=== PATIENT | male | born 1985 | race African-American/Black ===

== ENCOUNTER 2023-08-09 09:23 | Emergency (ER) | payer MEDICAID, SELFPAY ==
--- NOTE | ~2023-08-09 | XR_ITS ---
EXAMINATION: XR SHOULDER, RIGHT CLINICAL INFORMATION: Pain, no trauma COMPARISON: None available. TECHNIQUE: AP external rotation, Grashey, scapular Y views of the right shoulder. FINDINGS: The bones and soft tissues are normal. No fracture. Glenohumeral and acromioclavicular alignment is anatomic with normal joint space. No abnormal soft tissue calcifications. XR/XR shoulder RT min 2V IMPRESSION: Unremarkable plain radiographs of the right shoulder.
[2023-08-09 09:27] VITALS: BP 174/87; PULSE 90; RESP 19; TEMP 36.6; O2SAT 99; BMI 50.2
--- NOTE | 2023-08-09 12:28 | ECG_ITS ---
Test Reason : r arm pain Blood Pressure : / mmHG Vent. Rate : 063 BPM Atrial Rate : 063 BPM P-R Int : 180 ms QRS Dur : 106 ms QT Int : 386 ms P-R-T Axes : 055 019 042 degrees QTc Int : 395 ms Sinus rhythm with marked sinus arrhythmia Otherwise normal ECG When compared to the previous EKG of No significant changes seen Referred By: Carina Peñaloza Electronically Signed By:VITO COLLINS MD
--- NOTE | 2023-08-09 12:37 | ED_ITS ---
HPI - Extremity Problem General Chief complaint: Extremity Injury, Upper Stated complaint: R Shoulder Pain No Injury Time Seen by Provider: 08/09/23 12:01 Source: patient Mode of arrival: ambulatory Limitations: no limitations History of Present Illness HPI Narrative: This is a 38-year-old male history of obesity, diabetes, DVT on Eliquis, HTN presenting to the emergency department for complaints of atraumatic right shoulder pain for the past 3 days. Patient reports he awoke 3 days ago with atraumatic right shoulder pain after sleeping, pain started in the morning after waking up. He reports pain is worse with certain movements such as pulling and overhead movements. He denies any previous issues with his right shoulder. He reports intermittent tingling however no associated numbness. Denies associated trauma. Denies chest pain, shortness of breath, fevers, chills, nausea, vomiting, abdominal pain, headache, vision changes, dizziness and weakness. Related Data Home Medications Medication Instructions Recorded Confirmed acetaminophen 500 mg tablet 500 mg PO Q6H PRN Pain 02/01/23 02/01/23 amlodipine 10 mg tablet 10 mg PO DAILY 02/01/23 02/01/23 apixaban 2.5 mg tablet (Eliquis) 2.5 mg PO BID 02/01/23 02/01/23 aripiprazole 30 mg tablet 30 mg PO DAILY 02/01/23 02/01/23 chlorthalidone 25 mg tablet 12.5 mg PO DAILY 02/01/23 02/01/23 clonidine HCl 0.2 mg tablet 0.2 mg PO BEDTIME 02/01/23 02/01/23 gabapentin 400 mg capsule 400 mg PO DAILY 02/01/23 02/01/23 metformin 500 mg tablet 500 mg PO BID 02/01/23 02/01/23 nicotine 21 mg/24 hr daily 1 patch transdermal DAILY 02/01/23 02/01/23 transdermal patch olmesartan 20 mg tablet 10 mg PO DAILY 02/01/23 02/01/23 rosuvastatin 10 mg tablet 10 mg PO DAILY 02/01/23 02/01/23 trazodone 100 mg tablet 100 mg PO BEDTIME PRN Anxiety 02/01/23 02/01/23 venlafaxine 150 mg 300 mg PO DAILY 02/01/23 02/01/23 capsule,extended release 24 hr Previous Rx's Medication Instructions Recorded cyclobenzaprine 10 mg tablet 10 mg PO BEDTIME PRN muscle spasm 08/09/23 #7 tabs lidocaine 5 % topical patch 1 patch topical DAILY PRN pain #15 08/09/23 ea prednisone 20 mg tablet 20 mg PO DAILY 5 days #5 tabs 08/09/23 Allergies Allergy/AdvReac Type Severity Reaction Status Date / Time amoxicillin [AMOXICILLIN] Allergy Unknown REALLY Verified 08/09/23 09:26 SICK Penicillins [PENICILLINS] Allergy Unknown UNKNOWN Verified 08/09/23 09:26 Review of Systems Review of Systems: Constitutional : No Weight loss, No Fever, No Chills, No Fatigue, No Malaise ENT/Mouth : No sore throat, No Rhinorrhea Eyes: No Eye Pain, No Swelling, No Redness Cardiovascular : No Chest Pain, No SOB, No Dyspnea on Exertion, No Orthopnea, No Edema, No Palpitations Respiratory : No Cough, No Sputum, No Wheezing Gastrointestinal : No Nausea, No Vomiting, No Diarrhea, No Constipation, No abdominal Pain, No Hematochezia, No Melena Genitourinary : No Dysuria, No Urinary Frequency, No Hematuria, Musculoskeletal : + joint pain, No Myalgias, No Joint Swelling Skin : No Skin Lesions, No rash Neuro : No Weakness, No Numbness, No Dizziness, No Headache Psych : No Anxiety/Panic, No Depression All other systems reviewed and are negative Yes all other systems are reviewed and are negative [facility] Past Medical History Attestation statement: The following information was validated with the patient. Source: old records reviewed and nursing notes reviewed Medical History (Updated 08/09/23 @ 12:29 by AMANDA Almonte) GERD (gastroesophageal reflux disease) Uncontrolled type 2 diabetes mellitus with hyperglycemia Smoker Pulmonary embolism, bilateral Obesities, morbid HTN (hypertension) Bipolar 2 disorder Anxiety and depression Family History Family History (System 07/26/23 @ 13:58 by Tri Guzman) Maternal Grandmother Brain cancer Paternal Grandmother Heart disease Heart attack Stroke Social History Social History (System 07/26/23 @ 13:58 by Tri Guzman) Household Members: Significant Other and Family Patient Tobacco Use Status: Current everyday Tobacco user Tobacco use type: Cigarette Cigarettes Per Day: 8 Substance Use Type: Marijuana Advance Directives: No Advance Directives Information Provided: Yes service: No Current occupational status: disabled Physical Exam Vital Signs: Vital Signs: Last Vital Signs Temp 98 F 08/09/23 09:27 Pulse 90 08/09/23 09:27 Resp 19 08/09/23 09:27 BP 174/87 H 08/09/23 09:27 Pulse Ox 99 08/09/23 09:27 O2 Del Method Room Air 08/09/23 09:27 BMI result Body Mass Index 50.2 vss Appearance: Alert.? Oriented X3.? No acute distress.? Head: Normocephalic, atraumatic, no step-offs or deformities Eyes: Pupils equal, round and reactive to light.? Neck: Normal inspection.? Neck supple.? CVS: Normal heart rate and rhythm.? Pulses normal.? Respiratory: No respiratory distress.? Breath sounds normal.? Skin: Skin warm and dry.? Normal skin color.? Normal skin turgor.? Extremities: No lower extremity edema.? No calf ttp. 5/5 strength to bilateral upper and lower extremities full range of motion to bilateral upper extremities however some discomfort with range of motion of right shoulder particularly with overhead movements and with pulling. 2+ radial pulses equal bilateral. No wrist drop. Normal sensation distally to bilateral upper extremities. Capillary refill less than 2 seconds to bilateral upper extremity digits. There is some discomfort with palpation of the right deltoid region in the right trapezius superior aspect. Normal left shoulder and trapezius. Back: No midline tenderness, no C-spine tenderness, full range of motion, no CVA tenderness bilaterally Neuro: Oriented X 3.? No motor deficit.? No sensory deficit. CN 2-12 intact Course Reevaluation(s) Reevaluation #1: X-ray unremarkable. No fractures, dislocations. No signs of osteoarthritis. No soft tissue calcifications. Will give Lidoderm patch at this time. Will discharge with cyclobenzaprine, prednisone, Lidoderm patch. Educated patient on diagnosis and treatment plan, answered all question, patient verbalizes understanding. At this time patient will be discharged home, advised to return with new or worsening symptoms. Educated on worrisome signs and symptoms and when to return. At this time I feel comfortable discharge home. Time: 12:44 Medications Administered Discontinued Medications Generic Name Dose Route Start Last Admin Trade Name Freq PRN Reason Stop Dose Admin Lidocaine 2 patch 08/09/23 12:36 08/09/23 12:59 Lidocaine 4 % Patch Adh..Patch TRANSDERMA 08/09/23 12:37 2 patch ONCE ONE Administration Protocol Medical Decision Making Medical Decision Making MDM Narrative: 38-year-old male presents with atraumatic right shoulder pain x3 days Physical exam significant for No lower extremity edema.? No calf ttp. 5/5 strength to bilateral upper and lower extremities full range of motion to bilateral upper extremities however some discomfort with range of motion of right shoulder particularly with overhead movements and with pulling. 2+ radial pulses equal bilateral. No wrist drop. Normal sensation distally to bilateral upper extremities. Capillary refill less than 2 seconds to bilateral upper extremity digits. There is some discomfort with palpation of the right deltoid region in the right trapezius superior aspect. Normal left shoulder and trapezius. This is likely deltoid spasm or strain or trapezius muscle strain. Other differentials include tendinitis, osteoarthritis. Unlikely atypical presentation of ACS, venous occlusion, arterial occlusion, threat to limb or neurovascular compromise. Unlikely fracture dislocation as this is atraumatic pain. Plan at this time imaging and EKG. Differential Diagnosis Differential Diagnoses: The differential diagnosis associated with the presentation includes This is likely deltoid spasm or strain or trapezius muscle strain. Other differentials include tendinitis, osteoarthritis. Unlikely atypical presentation of ACS, venous occlusion, arterial occlusion, threat to limb or neurovascular compromise. Unlikely fracture dislocation as this is atraumatic pain. Admission/Observation Consideration of admission/observation: Escalation of care including admission/observation considered unlikey Independent Interpretation I performed an independent interpretation of an: EKG (Nonischemic) and Plain X- Ray (XR/XR shoulder RT min 2V IMPRESSION: Unremarkable plain radiographs of the right shoulder.) Radiology Impression Discussion of test interpretation with radiology: I have reviewed the radiologist's reading. (XR/XR shoulder RT min 2V IMPRESSION: Unremarkable plain radiographs of the right shoulder.) Tests considered The following testing was considered but not selected: Considered labs however no chest pain or shortness of breath unlikely ACS or PE. Prescription Management I considered prescription management with: Other (Muscle relaxer, prednisone) Chronic Conditions Patient?s care impacted by: Diabetes and Other (Obesity) Critical Care Time Critical Care Time Critical Care Time: No Discharge Plan Discharge Clinical Impression: Acute pain of right shoulder Patient Disposition: Home, Self-Care Instructions: Arm Pain (ED) Additional Instructions: Take your medications as prescribed. If you were prescribed antibiotics today, it is important that you take your medication to their entirety, do not skip any doses, do not finish them early. Follow-up with your primary care provider this week. Return to the emergency department with new or worsening symptoms. Such as fevers, chills, chest pain, shortness of breath, nausea, vomiting, dizziness, headache, vision changes, lethargy In case of emergency call 911 XR/XR shoulder RT min 2V IMPRESSION: Unremarkable plain radiographs of the right shoulder. Prescriptions: New cyclobenzaprine 10 mg tablet 10 mg PO BEDTIME PRN (Reason: muscle spasm) Qty: 7 0RF lidocaine 5 % adhesive patch,medicated 1 patch topical DAILY PRN (Reason: pain) Qty: 15 0RF Rx Instructions: leave on most painful area for up to 12 hrs prednisone 20 mg tablet 20 mg PO DAILY 5 Days Qty: 5 0RF No Action metformin 500 mg Tablet 500 mg PO BID gabapentin 400 mg Capsule 400 mg PO DAILY venlafaxine 150 mg Capsule,Extended Release 24hr 300 mg PO DAILY chlorthalidone 25 mg Tablet 12.5 mg PO DAILY acetaminophen 500 mg Tablet 500 mg PO Q6H PRN (Reason: Pain) clonidine HCl 0.2 mg Tablet 0.2 mg PO BEDTIME trazodone 100 mg Tablet 100 mg PO BEDTIME PRN (Reason: Anxiety) amlodipine 10 mg Tablet 10 mg PO DAILY nicotine 21 mg/24 hr Patch 24 Hour 1 patch TRANSDERMAL DAILY olmesartan 20 mg Tablet 10 mg PO DAILY aripiprazole 30 mg Tablet 30 mg PO DAILY rosuvastatin 10 mg Tablet 10 mg PO DAILY Eliquis 2.5 mg Tablet 2.5 mg PO BID Referrals: [facility] [Provider Group] - 3 days Grecia Braun FNP [Primary Care Provider] - 2 days Stand Alone Forms: Work/School Release
[2023-08-09] MEDS: Lidocaine 4 % Patch ADH..PATCH 2 PATCH TRANSDERMA (12:59)
--- NOTE | 2023-08-09 13:04 | PC.NURSE ---
pt medicated per order, triage tech to do ekg
[2023-08-09 13:27] VITALS: BP 168/82; PULSE 63; RESP 18; TEMP 36.7; O2SAT 96
--- NOTE | 2023-08-09 13:27 | PC.NURSE ---
patient a&ox3, vss, ekg performed, pt medicated per order, pt to discharge home with prescriptions.
== END 2023-08-09 13:28 | disposition home or self-care (01) ==
PROVIDERS: Emergency Provider Emergency Medicine; PCP Registered Nurse
DX: M25.511 Pain in right shoulder (principal); M79.601 Pain in right arm; I49.8 Other specified cardiac arrhythmias
CPT/HCPCS: 73030; 93005; 99283; 99284

== ENCOUNTER → 2023-08-09 12:28 | Outpatient (BNV) | payer MEDICAID, SELFPAY | PROVIDERS: Emergency Provider Emergency Medicine; PCP Registered Nurse; Visit Provider Internal Medicine Cardiovascular Disease | DX: M79.601 Pain in right arm (principal) | CPT/HCPCS: 93010 ==

== ENCOUNTER 2023-08-15 09:20 | Outpatient (AMB) | payer MEDICAID, SELFPAY ==
--- NOTE | 2023-08-15 09:21 | MHC.OFFVIS ---
Intake Intake Visit Reasons: New Pt - Right shoulder pain Intake Note: Mike is a 38 year old right hand dominant male who presents today as a new patient for a evaluation of his right shoulder pain. NO hx of injury. Patient reports he has been having ongoing pain for 2 weeks now. Currently is still having a lot of pain, his pain is on the shoulder and moves to the back of his shoulder blade. Pain is worse when sitting up straight and laying down at night. Allergies amoxicillin [AMOXICILLIN] Allergy (Unknown, Verified 08/15/23 09:24) REALLY SICK Penicillins [PENICILLINS] Allergy (Unknown, Verified 08/15/23 09:24) UNKNOWN HPI New Pt - Right shoulder pain HPI Details 38-year-old right hand dominant male who presents in the office today, as a new patient, for an evaluation of right shoulder pain beginning around 08/06/2023 status post sleeping. X-rays were obtained. He was given a Lidoderm patch. While in the office today the patient reports no history of injury. He reports having ongoing pain for 2 weeks. He states he is having a lot of pain in the right shoulder that radiates to the back of the shoulder blade. He states his pain is worse when sitting up straight and laying down at night. [facility] Medical History (Updated 08/15/23 @ 10:07 by Inocencia Saunders PA-C) GERD (gastroesophageal reflux disease) Uncontrolled type 2 diabetes mellitus with hyperglycemia Smoker Pulmonary embolism, bilateral Obesities, morbid HTN (hypertension) Bipolar 2 disorder Anxiety and depression Family History (System 07/26/23 @ 13:58 by Tri Guzman) Maternal Grandmother Brain cancer Paternal Grandmother Heart disease Heart attack Stroke Social History Household Members: Significant Other and Family Patient Tobacco Use Status: Current everyday Tobacco user Tobacco use type: Cigarette Cigarettes Per Day: 8 Substance Use Type: Marijuana service: No Current occupational status: disabled Review of Systems Const All systems reviewed & are unremarkable except as noted in HPI and below Physical Exam Const General: cooperative and no acute distress Orientation/consciousness: patient oriented x3 Resp Effort & Inspection: normal respiratory effort and able to speak in complete sentences Cardio Peripheral pulses: Peripheral pulses 2+ throughout Skin General skin exam: no rashes or lesions noted Neuro General: patient oriented x3 Extrem Other: Right shoulder: Normal to inspection. No ecchymosis, erythema, or edema. Forward flexion to end range with pain at the last 20 degrees. Abduction to 90 degrees. External rotation to 45 degrees. Able to reach back pocket. Pain with cross-body reach. 4/5 strength with empty can. Negative drop arm. Tenderness to palpation over the trapezius muscle. NVI. Assessment & Plan Assessment & Plan (1) Myofascial pain: Code(s): M79.18 - Myalgia, other site (2) Right shoulder pain: Code(s): M25.511 - Pain in right shoulder Plan Mr. Weems is a 38-year-old right hand dominant male who presents in the office today, as a new patient, for an evaluation of right shoulder pain beginning around 08/06/2023 status post sleeping. X-rays were obtained. He was given a Lidoderm patch. While in the office today the patient reports no history of injury. He reports having ongoing pain for 2 weeks. He states he is having a lot of pain in the right shoulder that radiates to the back of the shoulder blade. He states his pain is worse when sitting up straight and laying down at night. The patient?s pain appears to be muscular in nature. A referral has been placed for the patient to attend physical therapy and for further evaluation with Physiatry. A refill of his lidocaine patches were sent to the pharmacy. Follow up with Ortho will be PRN, or sooner if needed. X-rays of the right shoulder, obtained on 08/09/2023, revealed: No acute fracture or dislocation. Medications: Refilled lidocaine 5% leave on most painful area for up to 12 hrs 1 patch topical DAILY PRN 15 ea 0RF pain Patient Instructions: Scribed by Sophie Baltazar medical genetics director, for Inocencia Saunders PA-C on 08/15/2023 at 9:28 am, EST. Coding Level of Care Code New Pt Level 4 (32077) Diagnoses Myofascial pain M79.18 Right shoulder pain M25.511
== END 2023-08-15 09:51 | disposition home or self-care (01) ==
PROVIDERS: PCP Registered Nurse; Visit Provider Physician Assistant
DX: M79.18 Myalgia, other site (principal); M25.511 Pain in right shoulder
CPT/HCPCS: 99204

== ENCOUNTER → 2023-08-15 09:20 | Outpatient (BNVA) | payer MEDICAID, SELFPAY | PROVIDERS: PCP Registered Nurse; Visit Provider Physician Assistant | DX: M79.18 Myalgia, other site (principal); M25.511 Pain in right shoulder | CPT/HCPCS: 99212 ==

== ENCOUNTER 2023-08-31 10:00 | Outpatient (REF) | payer MEDICAID, SELFPAY ==
--- NOTE | ~2023-08-31 | XR_ITS ---
EXAMINATION: XR SHOULDER, RIGHT CLINICAL INFORMATION: Acute right shoulder pain COMPARISON: None available. TECHNIQUE: AP external rotation, Grashey, scapular Y, and axillary views of the right shoulder. FINDINGS: The bones and soft tissues are normal. No fracture. Glenohumeral and acromioclavicular alignment is anatomic with normal joint space. No abnormal soft tissue calcifications. XR/XR shoulder RT min 2V IMPRESSION: Unremarkable right shoulder.
== END 2023-08-31 10:01 | disposition home or self-care (01) ==
LOC: HO.HHCX 10:00
PROVIDERS: Visit Provider Emergency Medicine
DX: M25.511 Pain in right shoulder (principal)
CPT/HCPCS: 73030

== ENCOUNTER → 2023-12-21 11:00 | Outpatient (BNV) | payer MEDICAID, SELFPAY | PROVIDERS: PCP Registered Nurse; Referring Provider Registered Nurse; Visit Provider Internal Medicine | DX: Z86.711 Personal history of pulmonary embolism (principal) | CPT/HCPCS: 99204 ==

== ENCOUNTER 2024-01-11 09:33 | Outpatient (RCR) | payer MEDICAID, SELFPAY ==
--- NOTE | 2024-02-27 08:55 | MHC.PT.DC ---
[facility] [place] [facility] [place] [facility] [place] [facility] [address] Bernard Tinoco [address] [phone] F: [phone] F: [phone] F: [phone] F: [phone] Physical Therapy Discharge Report Diagnosis: Acute Pain of R Shoulder Date of Surgery: N/A Date of Evaluation: 01/11/24 Date of Discharge: 02/27/24 Treatments to Date: 1 Cancellations to Date: 1 No Shows to Date: 2 Discharge Status: Visit Non-compliance Discharge Summary: Attended eval only, did not return for further visits. Electronically signed by: Hannah Eaton PT DPT Please sign and return to therapist. Thank you for your referral.
== END 2024-02-27 08:55 | disposition home or self-care (01) ==
LOC: HO.PT 09:33
PROVIDERS: PCP Registered Nurse; Visit Provider Registered Nurse
DX: M25.511 Pain in right shoulder (principal)
CPT/HCPCS: 97110; 97161; 97535

== ENCOUNTER 2024-03-12 10:46 | Outpatient (AMB) | payer MEDICAID, SELFPAY ==
--- NOTE | 2024-03-12 10:49 | MHC.OFFVIS ---
Intake Visit Reasons: Abscess~ Rt lower abd Intake Note: Patient scheduled as urgent appointment for abscess on right lower abdomen. Started to flare 1m ago. Was seen by Dr. Kapadia this morning. He is due to start Doxy. Patient c/o: oozing a couple days. Painful when rubs against clothing. Automobile Racer Required: No Accompanied by: Self / Same As Patient Allergies amoxicillin [AMOXICILLIN] Allergy (Unknown, Verified 03/12/24 10:56) REALLY SICK Penicillins [PENICILLINS] Allergy (Unknown, Verified 03/12/24 10:56) UNKNOWN HPI Comments Details: Patient presents for evaluation of abdominal wall infection. He has history of folliculitis in the past, the most recent involving his upper right abdomen which has been treated with conservative therapy and antibiotics. He presents with a recurrence of this on in the lower abdominal on this episode. He has been given a script for antibiotics by his medical doctor which he has not picked up yet. He presents here for further evaluation. Chart was reviewed and patient evaluated. Patient was no longer taking Eliquis. [facility] Medical History (Updated 12/21/23 @ 12:31 by Lauren Bennett MD) GERD (gastroesophageal reflux disease) Uncontrolled type 2 diabetes mellitus with hyperglycemia Smoker Pulmonary embolism, bilateral Obesities, morbid HTN (hypertension) Bipolar 2 disorder Anxiety and depression Family History Maternal Grandmother Brain cancer Paternal Grandmother Heart disease Heart attack Stroke Social History Household Members: Significant Other and Family Patient Tobacco Use Status: Current everyday Tobacco user Tobacco use type: Cigarette Substance Use Type: Marijuana service: No Current occupational status: disabled Physical Exam GI Other: Very corpulent abdomen. Patient has a huge pannus. There is folliculitis involving the right lower quadrant abdominal wall with surrounding erythema and edema. No evidence of any purulence or drainage expressed from the superficial open wound. Dressing applied. Assessment & Plan Assessment & Plan (1) Folliculitis: Code(s): L73.9 - Follicular disorder, unspecified Category: Surgical Plan Similar to his prior episodes, the current plan is treat this conservatively with local wound care in the form of warm compresses and the patient was been strongly encouraged to get his antibiotics script and take these as well. He will see me in few days' time for follow-up or p.r.n.. All questions answered during this interim should the patient the progression of symptoms, he is instructed to call the office or go to the ER. Coding Level of Care Code New Pt Level 4 (79362) Diagnoses Folliculitis L73.9
== END 2024-03-12 11:02 | disposition home or self-care (01) ==
PROVIDERS: PCP Registered Nurse; Referring Provider Emergency Medicine; Visit Provider Surgery
DX: L73.9 Follicular disorder, unspecified (principal)
CPT/HCPCS: 99204

== ENCOUNTER → 2024-03-12 10:46 | Outpatient (BNVA) | payer MEDICAID, SELFPAY | PROVIDERS: PCP Registered Nurse; Referring Provider Emergency Medicine; Visit Provider Surgery | DX: L73.9 Follicular disorder, unspecified (principal) | CPT/HCPCS: 99202 ==

== ENCOUNTER 2024-10-09 19:37 | Emergency (ER) | payer MEDICAID, SELFPAY ==
--- NOTE | ~2024-10-09 | US_ITS ---
CLINICAL HISTORY: right foot swelling Venous duplex ultrasound right lower extremity Comparison: None Findings: The visualized deep veins are fully compressible with normal Doppler color flow and spectral tracings. No popliteal cyst. IMPRESSION: 1. Negative for right lower extremity deep vein thrombosis. This document has been electronically signed by: Tess Landers MD on 10/09/2024 21:25:59
--- NOTE | ~2024-10-09 | XR_ITS ---
CLINICAL HISTORY: foot, big toe pain 3 view right foot Comparison: None Findings: Bones intact. No dislocations. No significant arthritic change or erosions. No ankle effusion. No radiopaque foreign body. IMPRESSION: 1. No acute findings. This document has been electronically signed by: Tess Landers MD on 10/09/2024 21:42:24
[2024-10-09 20:34] VITALS: BP 151/88; PULSE 91; RESP 17; TEMP 37.3; O2SAT 96; BMI 48.1
--- NOTE | 2024-10-09 20:39 | ED.GENADULT ---
HPI - General Adult General Chief complaint: Extremity Problem Stated complaint: rt ft pain/swelling Time Seen by Provider: 10/10/24 00:13 Source: patient, RN notes reviewed and old records reviewed Mode of arrival: ambulatory Limitations: no limitations History of Present Illness ED Provider: Colin HPI narrative: 39-year-old male presents for evaluation of right great toe pain. Patient reports pain to the right great toe for the last 2 days. He denies any injury. Denies any fevers or chills. He denies any known history of gout No other complaints or concerns pain Denies any calf pain or swelling He does have a history of PE but is not currently anticoagulated His pain is 8/10 and worse with any kind of pressure to the right great toe Related Data Home Medications ?Medication ?Instructions ?Recorded ?Confirmed acetaminophen 500 mg tablet 500 mg PO Q6H PRN Pain 02/01/23 03/12/24 amlodipine 10 mg tablet 10 mg PO DAILY 02/01/23 03/12/24 aripiprazole 30 mg tablet 30 mg PO DAILY 02/01/23 03/12/24 chlorthalidone 25 mg tablet 12.5 mg PO DAILY 02/01/23 03/12/24 clonidine HCl 0.2 mg tablet 0.2 mg PO BEDTIME 02/01/23 03/12/24 gabapentin 400 mg capsule 400 mg PO DAILY 02/01/23 03/12/24 metformin 500 mg tablet 500 mg PO BID 02/01/23 03/12/24 nicotine 21 mg/24 hr daily 1 patch transdermal DAILY 02/01/23 03/12/24 transdermal patch olmesartan 20 mg tablet 10 mg PO DAILY 02/01/23 03/12/24 rosuvastatin 10 mg tablet 10 mg PO DAILY 02/01/23 03/12/24 trazodone 100 mg tablet 100 mg PO BEDTIME PRN Anxiety 02/01/23 03/12/24 venlafaxine 150 mg 300 mg PO DAILY 02/01/23 03/12/24 capsule,extended release 24 hr dulaglutide 0.75 mg/0.5 mL mg subcut QWEEK 08/15/23 03/12/24 subcutaneous pen injector (Trulicity) Previous Rx's ?Medication ?Instructions ?Recorded cyclobenzaprine 10 mg tablet 10 mg PO BEDTIME PRN muscle spasm 08/09/23 #7 tabs prednisone 20 mg tablet 20 mg PO DAILY 5 days #5 tabs 08/09/23 lidocaine 5 % topical patch 1 patch topical DAILY PRN pain #15 08/15/23 ea colchicine 0.6 mg tablet 0.6 mg PO DAILY 1 week #7 tabs 10/10/24 oxycodone 5 mg tablet 5 mg PO Q6H PRN severe pain (scale 10/10/24 score 7-10) #12 tabs prednisone 20 mg tablet 40 mg (2 x 20 mg) PO DAILY #8 tabs 10/10/24 Allergies Allergy/AdvReac Type Severity Reaction Status Date / Time amoxicillin [AMOXICILLIN] Allergy Unknown REALLY Verified 10/09/24 20:36 SICK Penicillins [PENICILLINS] Allergy Unknown UNKNOWN Verified 10/09/24 20:36 Review of Systems Musculoskeletal: Musculoskeletal: Reports arthralgias, Reports joint swelling and Reports limited range of motion Integumentary/Breasts: Skin/Breast: Reports erythema and Denies wounds PMFSH Past Medical History Medical History (Updated 10/10/24 @ 00:32 by Winston Shaw) GERD (gastroesophageal reflux disease) Uncontrolled type 2 diabetes mellitus with hyperglycemia Smoker Pulmonary embolism, bilateral Obesities, morbid HTN (hypertension) Bipolar 2 disorder Anxiety and depression Family History Family History Maternal Grandmother Brain cancer Paternal Grandmother Heart disease Heart attack Stroke Social History Social History Household Members: Significant Other and Family Patient Tobacco Use Status: Current everyday Tobacco user Tobacco use type: Cigarette Smoked in Last 30 Days: No Use of substances other than those prescribed or required for medical reasons: No Substance Use Type: Marijuana Advance Directives: No Do you have a plan to hurt others: No Plan service: No Current occupational status: disabled Physical Exam ED Vital Signs: Vital Signs - 24 hr 10/09/24 20:34 10/09/24 23:57 10/10/24 00:41 Temperature 99.2 F 97.2 F 97.2 F Pulse Rate 91 87 87 Respiratory Rate 17 17 17 Blood Pressure 151/88 H 157/91 H 157/91 H Pulse Oximetry 96 97 97 Oxygen Delivery Method Room Air Room Air Room Air BMI result Body Mass Index 48.1 Const General: healthy appearing, comfortable, no acute distress, alert and awake Nutritional Appearance: well nourished Orientation/consciousness: patient oriented x3 HENMT Head: Yes normocephalic and Yes atraumatic Eyes Eyelids: Yes eyelids normal Conjunctivae: conjunctivae normal Sclerae: sclerae normal Corneas: corneas normal Pupils: Equal, round and reactive pupils present EOM: EOMs intact bilaterally Neck Neck: Yes full ROM Resp Effort & Inspection: normal respiratory effort, able to speak in complete sentences and not labored Skin General skin exam: elasticity normal Neuro General: patient oriented x3 Cranial nerves: Yes Equal, round and reactive pupils present and Yes Bilaterally intact EOM present Cognition (Neuro): normal cognition Extrem Other: No calf tenderness, negative Homans sign. There is mild erythema to the right 1st MTP joint. This area is mildly edematous with exquisite tenderness to palpation. No obvious visual or palpable deformity Course Course Course Narrative: RME: 39-year-old male presents to ED for right foot big toe pain for the past couple of days. Patient states that area of the foot is swollen. Patient denies any recent trauma, recent travel, or recent surgery. Negative for leg or calf pain. X-ray, labs, ultrasound ordered. Medical Decision Making Medical Decision Making [facility] Narrative: 39-year-old male presents for evaluation of atraumatic pain to the right great toe. He has no history of gout and therefore a workup was ordered. He has no leukocytosis, he has elevated inflammatory markers and a high uric acid all indicative of a diagnosis of gout. X-ray shows no evidence of trauma. There are no no open wounds or cracks in the skin to suggest a cellulitis/abscess and again the patient is afebrile with no leukocytosis. Gout is serum to be the most likely diagnosis. Differential Diagnosis Differential Diagnoses: The differential diagnosis associated with the presentation includes Gout Contusion Fracture Cellulitis Abscess Lab Data [facility] Lab Attestation statement: I reviewed the patient's lab results. As above 10/09/24 21:25 10/09/24 21:25 Labs: Lab Results 10/09/24 Range/Units 21:25 WBC 9.3 (4.8-10.8) X10*3/uL RBC 4.44 L (4.60-5.80) X10*6/uL Hgb 11.0 L (14.0-18.0) g/dl Hct 34.4 L (42.0-52.0) % MCV 77.5 L (80.0-98.0) fL MCH 24.8 L (27.0-33.0) pg MCHC 32.0 (31.0-36.0) g/dl RDW 15.2 (11.0-16.0) % Plt Count 440 H (160-400) X10*3/uL MPV 9.1 L (9.4-12.4) fL Immature Gran % (Auto) 0.5 H (0.0-0.4) % Neut % (Auto) 77.8 H (45-73) % Lymph % (Auto) 13.2 L (20-40) % [place] % (Auto) 6.6 (2-11) % Eos % (Auto) 1.7 (0-4) % Baso % (Auto) 0.2 (0-2) % Lymph # (Auto) 1.2 (1.2-4.9) X10*3/uL [place] # (Auto) 0.6 (0.1-1.2) X10*3/uL Eos # (Auto) 0.2 (0.0-0.4) X10*3/uL Baso # (Auto) 0.0 (0.0-0.2) X10*3/uL Abs Immat Gran (auto) 0.05 H (0.00-0.03) X10*3/uL Absolute Neuts (auto) 7.2 (2.0-8.3) x10*3/uL Absolute Nucleated RBC 0.000 (0.0-0.012) X10*3/uL Nucleated RBC % (auto) 0.0 (0.0-0.2) /100WBC ESR 36 H (0-15) MM/HR PT 12.3 (10.9-12.4) SEC INR 1.1 (0.9-1.1) APTT 36.6 (26.0-36.8) SEC Sodium 140 (135-145) mmol/L Potassium 3.7 (3.3-5.1) mmol/L Chloride 103 (96-108) mmol/L Carbon Dioxide 27 (22-29) mmol/L Anion Gap 14 (12-20) BUN 15 (9-16) mg/dL Creatinine 0.97 (0.5-1.4) mg/dL Estim Creat Clear Calc 154.2 Estimated GFR > 60 Random Glucose 131 H (60-115) mg/dL Uric Acid 7.2 H (3.4-7.0) mg/dL Calcium 9.3 (8.4-10.2) mg/dL Total Bilirubin 0.2 (0.0-1.0) mg/dL AST 24 (5-37) U/L ALT 24 (0-40) U/L Alkaline Phosphatase 66 (39-117) U/L C-Reactive Protein 1.86 H (< or = 0.50) mg/dL Total Protein 7.2 (6.5-8.0) g/dL Albumin 4.2 (3.5-5.0) g/dL Radiology Impression Discussion of test interpretation with radiology: I have reviewed the radiologist's reading. Radiologist Impression: Findings: Bones intact. No dislocations. No significant arthritic change or erosions. No ankle effusion. No radiopaque foreign body. IMPRESSION: 1. No acute findings. This document has been electronically signed by: Tess Landers MD on 10/09/2024 21:42:24 Findings: The visualized deep veins are fully compressible with normal Doppler color flow and spectral tracings. No popliteal cyst. IMPRESSION: 1. Negative for right lower extremity deep vein thrombosis. This document has been electronically signed by: Tess Landers MD on 10/09/2024 21:25:59 Discharge Plan Discharge Clinical Impression: Gout Patient Disposition: Home, Self-Care Instructions: Low Purine Diet (ED), Gout (ED) Additional Instructions: Your workup in the ER today was reassuring. The pain in your toe is most likely from a condition called gout There is information in your discharge packet about a low purine diet This diet will help prevent recurrences of gout Take the colchicine and prednisone as directed to help reduce inflammation and treat the gout You may use Tylenol as needed for pain. You may use oxycodone for more severe, breakthrough pain This may make you drowsy, do not drink alcohol or drive after taking it Prescriptions: New oxycodone 5 mg tablet 5 mg PO Q6H PRN (Reason: severe pain (scale score 7-10)) Qty: 12 0RF Rx Instructions: Partial Fill upon patient request. prednisone 20 mg tablet 40 mg PO DAILY Qty: 8 0RF colchicine 0.6 mg tablet 0.6 mg PO DAILY 7 Days Qty: 7 0RF No Action metformin 500 mg Tablet 500 mg PO BID gabapentin 400 mg Capsule 400 mg PO DAILY venlafaxine 150 mg Capsule,Extended Release 24hr 300 mg PO DAILY chlorthalidone 25 mg Tablet 12.5 mg PO DAILY acetaminophen 500 mg Tablet 500 mg PO Q6H PRN (Reason: Pain) clonidine HCl 0.2 mg Tablet 0.2 mg PO BEDTIME trazodone 100 mg Tablet 100 mg PO BEDTIME PRN (Reason: Anxiety) amlodipine 10 mg Tablet 10 mg PO DAILY nicotine 21 mg/24 hr Patch 24 Hour 1 patch TRANSDERMAL DAILY olmesartan 20 mg Tablet 10 mg PO DAILY aripiprazole 30 mg Tablet 30 mg PO DAILY rosuvastatin 10 mg Tablet 10 mg PO DAILY cyclobenzaprine 10 mg tablet 10 mg PO BEDTIME PRN (Reason: muscle spasm) Qty: 7 0RF prednisone 20 mg tablet 20 mg PO DAILY 5 Days Qty: 5 0RF Trulicity 0.75 mg/0.5 mL pen injector subcut QWEEK lidocaine 5 % adhesive patch,medicated 1 patch topical DAILY PRN (Reason: pain) Qty: 15 0RF Rx Instructions: leave on most painful area for up to 12 hrs Interventions: ED Discharge Assessment Last Done: 10/10/24 00:41 Discharge Date/Time: 10/10/24 00:41 Print Language: Citizen Of [place]
--- NOTE | 2024-10-09 21:10 | MHC.EDTECH ---
Patient labs is delay ,because Patient is in ultra sound .
[2024-10-09 21:31] LABS: MANUAL DIFF FLAG NO
[2024-10-09 21:36] LABS: Basophils Percent Auto 0.2 % (0-2); Eosinophils Absolute Auto 0.2 X10*3/uL (0.0-0.4); Eosinophils Percent Auto 1.7 % (0-4); Hematocrit 34.4 % (42.0-52.0); Imm Gran Abs Auto 0.05 X10*3/uL (0.00-0.03); Imm Gran Pct Auto 0.5 % (0.0-0.4); Lymphocytes Absolute Auto 1.2 X10*3/uL (1.2-4.9); Lymphocytes Percent Auto 13.2 % (20-40); Mean Corpuscular Hemoglobin 24.8 pg (27.0-33.0); Mean Corpuscular Volume 77.5 fL (80.0-98.0); Mean Platelet Volume 9.1 fL (9.4-12.4); Monocytes Absolute Auto 0.6 X10*3/uL (0.1-1.2); Monocytes Percent Auto 6.6 % (2-11); Neutrophils Absolute Auto 7.2 x10*3/uL (2.0-8.3); Neutrophils Percent Auto 77.8 % (45-73); Platelet Count 440 X10*3/uL (160-400); Red Blood Count 4.44 X10*6/uL (4.60-5.80); Red Cell Distribution Width 15.2 % (11.0-16.0); White Blood Count 9.3 X10*3/uL (4.8-10.8)
[2024-10-09 21:45] LABS: INTERNATIONAL NORM RATIO 1.1 (0.9-1.1); Prothrombin Time 12.3 SEC (10.9-12.4)
[2024-10-09 21:53] LABS: Partial Thromboplastin Time 36.6 SEC (26.0-36.8)
[2024-10-09 22:12] LABS: Alanine Aminotransferase 24 U/L (0-40); Albumin Level 4.2 g/dL (3.5-5.0); Alkaline Phosphatase 66 U/L (39-117); Anion Gap 14 (12-20); Aspartate Amino Transferase 24 U/L (5-37); Bilirubin Total 0.2 mg/dL (0.0-1.0); Blood Urea Nitrogen 15 mg/dL (9-16); C Reactive Protein 1.86 mg/dL (< or = 0.50); Calcium 9.3 mg/dL (8.4-10.2); Carbon Dioxide 27 mmol/L (22-29); Chloride 103 mmol/L (96-108); Creatinine Clr Calc Pharmacy 154.2; Estimated Glomerular Filt Rate > 60; Glucose Random 131 mg/dL (60-115); Potassium 3.7 mmol/L (3.3-5.1); Sodium 140 mmol/L (135-145); Total Protein 7.2 g/dL (6.5-8.0); Uric Acid 7.2 mg/dL (3.4-7.0)
[2024-10-09 22:13] LABS: Erythrocyte Sedimentation Rate 36 MM/HR (0-15)
--- OUTSIDE RECORDS SUMMARY | 2024-10-09 23:11 | XMS_ITS | Encounter Summary ---
Author Organization [employer] Address [address] [place] [address] Care Team Providers Care Door Clamper Name Role Phone [facility] Primary Care Provider [phone] Encounter Details Date Type Department Care Team (Late Contact Info) Description 12/23/2022 Abstract [facility] ADULT DENTAL [address] [place], [place] [phone] Dale Knight DMD [address] [place], [place] [id number] Social History Tobacco Use Types Packs/Day Years Used Date Smoking Tobacco: Every Day Cigarettes Smokeless Tobacco: Never Alcohol Use Standard Drinks/Week Comments Never 0 (1 standard drink = 0.6 oz pur e alcohol) Depression Answer Date Recorded Patient Health Questionnaire-9 Score 15 08/25/2022 Depression Answer Date Recorded Patient Health Questionnaire-2 Score 4 08/25/2022 Sex and Gender Information Value Date Recorded Sex Assigned at Male 04/19/2022 10:27 AM EDT Legal Sex Male 10:27 AM EDT Gender Identity Male 04/19/2022 10:27 AM EDT Sexual Orientation Straight 04/19/2022 10 :27 AM EDT COVID-19 Exposure Response Date Recorded In the last 10 days, have yo u been in contact with someone who was confirmed or suspected to have Coronavirus/COVID-19? No / Unsure 12/08/2022 9:55 AM EDT documented as of this encounter Plan of Treatment Upcoming Encounters Date Type Department Care Team (Late Contact Info) Description 11/14/2024 9:00 AM EDT Office Visit [facility] MEDICINE [address] [place], [place] [phone] Grecia Braun FNP [address] [place] [address] documented as of this encounter Visit Diagnoses Not on filedocumented in this encounter Additional Health Concerns Assessment Noted Time PHQ-9 Depression Total Score: 15 023 10:49 AM EST documented as of this encounter Care Teams Door Clamper Relationship Specialty Start Date End Date Grecia Braun FNP [address] [place] [address] PCP - General Family Medicine 08/25/22 documented as of this encounter
--- OUTSIDE RECORDS SUMMARY | 2024-10-09 23:11 | XMS_ITS | Encounter Summary ---
Author Organization [employer] Address [address] [facility] [address] [facility] [address] [place] [address] Care Team Providers Care Laboratory Operations Coordinator Name Role Phone Grecia Braun [facility] Primary Care Provider [phone] Reason for Visit * Reason Onset Date Comments Results 08/31/2023 Encounter Details Date Type Department Care Team ([facility] Contact Info) Description 08/31/2023 Telephone [facility] MEDICINE [address], [place] [phone] [place] [facility] [address] [place] [address] Results Social History Tobacco Use Types Packs/Day Years Used Date Smoking Tobacco: Every Day Cigarettes Smokeless Tobacco: Never Alcohol Use Standard Drinks/Week Comments Never 0 (1 standard drink = 0.6 oz pur e alcohol) Depression Answer Date Recorded Patient Health Questionnaire-9 Score 15 08/25/2022 Housing Stability Answer Date Recorded What is your housing situation today? I have juanita conway 04/04/[address] you li ve. Do you have problems with any of the following? None of the above 04/04/2023 Food Insecurity Answer Date Recorded Within the past 12 months, y ou worried that your food would run out before you got money to buy more: Never True 04/04/2023 Within the past 12 months,th e food you bought just didn't last and you didn't have enough money to get more: Never True Transportation Answer Date Recorded In the past 12 months, has l ack of transportation kept you from medical appts, meetings, work or from getting things needed for daily living? No 04/04/2023 Utilities Answer Date Recorded In the past 12 months, has t he electric, gas, oil or water company threatened to shut off services in your home? No 04/04/2023 Depression Answer Date Recorded Patient Health Questionnaire-2 Score 4 08/25/2022 Sex and Gender Information Value Date Recorded Sex Assigned at Male 04/19/2022 10:27 AM EDT Legal Sex Male 10:27 AM EDT Gender Identity Male 04/19/2022 10:27 AM EDT Sexual Orientation Straight 04/19/2022 10 :27 AM EDT documented as of this encounter Miscellaneous Notes * Telephone Encounter - Beatriz Bruner RN - 08/31/2023 4:46 PM EDT TC from pt requesting call back regarding Results. Type of results: Xray shoulder Date when done: 08/30 Facility: [facility] Please contact pt spouse at [phone] TC returned to patient and message from provider was discussed. Please inform Pt R shoulder XR does show no arthritis or abnormality. I recommend he follow up withPT, but he can also be scheduled for joint injection PRN Patient would like referral for our joint injection clinic will send to provider so referral can besent * Telephone Encounter - Rita Velazco - 08/31/2023 3:42 PM EDT TC from pt requesting call back regarding Results. Type of results: Xray shoulder Date when done: 08/30 Facility: [facility] Please contact pt spouse at [phone] documented in this encounter Plan of Treatment Upcoming Encounters Date Type Department Care Team (Late st Contact Info) Description 11/14/2024 9:00 AM EDT Office Visit [facility] MEDICINE [address], [place] [phone] [place] [address] [place] [address] documented as of this encounter Visit Diagnoses Not on filedocumented in this encounter Additional Health Concerns Assessment Noted Time PHQ-9 Depression Total Score: 15 023 10:49 AM EST documented as of this encounter Care Teams Laboratory Operations Coordinator Relationship Specialty Start Date End Date Grecia Braun FNP [address] [place] [id number] PCP - General Family Medicine 08/25/22 documented as of this encounter
--- OUTSIDE RECORDS SUMMARY | 2024-10-09 23:11 | XMS_ITS | Encounter Summary ---
Author Organization [employer] Address [address] [place] [address] Care Team Providers Care Mycologist Name Role Phone [facility] Primary Care Provider Encounter Details Date Type Department Care Team ([facility] Contact Info) Description 10/09/2024 Orders Only [facility] External Provider, [facility] Social History Tobacco Use Types Packs/Day Years Used Date Smoking Tobacco: Every Day Cigarettes Smokeless Tobacco: Never Alcohol Use Standard Drinks/Week Comments Never 0 (1 standard drink = 0.6 oz pur e alcohol) Depression Answer Date Recorded Patient Health Questionnaire-9 Score 15 08/25/2022 Housing Stability Answer Date Recorded What is your housing situation today? I have juanita conway 07/12/[address] you li ve. Do you have problems with any of the following? None of the above 07/12/2024 Food Insecurity Answer Date Recorded Within the past 12 months, y ou worried that your food would run out before you got money to buy more: Never True 07/12/2024 Within the past 12 months,th e food you bought just didn't last and you didn't have enough money to get more: Never True Transportation Answer Date Recorded In the past 12 months, has l ack of transportation kept you from medical appts, meetings, work or from getting things needed for daily living? No 07/12/2024 Utilities Answer Date Recorded In the past 12 months, has t he electric, gas, oil or water company threatened to shut off services in your home? No 07/12/2024 Depression Answer Date Recorded Patient Health Questionnaire-2 Score 4 08/25/2022 Internet Access Answer Date Recorded Internet Access Q1 Yes 07/12/2024 Internet Access Q2 Not on file 07/12/2024 Sex and Gender Information Value Date Recorded Sex Assigned at Male 04/19/2022 10:27 AM EDT Legal Sex Male 10:27 AM EDT Gender Identity Male 04/19/2022 10:27 AM EDT Sexual Orientation Straight 04/19/2022 10 :27 AM EDT documented as of this encounter Plan of Treatment Upcoming Encounters Date Type Department Care Team (Late st Contact Info) Description 11/14/2024 9:00 AM EDT Office Visit [facility] [address] [place] [address] [place], [place], FLORAL DESIGNER [address] [place], [place] [phone] documented as of this encounter Procedures Procedure Name Priority Date/Time Associated Diagnosis Comments XR FOOT 1-2 VIEWS RIGHT Routine 10/09/2024 9:42 PM EDT US VENOUS DUPLEX LE RT Routine 9:25 PM EDT CBC WITH AUTO DIFFERENTIAL Routine 10/09/2024 9:25 PM EDT APTT Routine 10/09/2024 9:25 PM EDT SED RATE BY MODIFIED WESTERGREN Routine 10/09/2024 9:25 PM EDT PROTHROMBIN TIME-INR Routine 10/09/2024 9:25 PM EDT C-REACTIVE PROTEIN Routine 10/09/2024 9: 25 PM EDT URIC ACID Routine 10/09/2024 9:25 PM EDT COMPREHENSIVE METABOLIC PANEL Routine 10/09/2024 9:25 PM EDT documented in this encounter Results * XR Foot 1-2 Views Right (10/09/2024 9:42 PM EDT) Anatomical Region Laterality Modality Lower Extremities, Foot Right Radiogra phic Imaging 10/09/2024 9:42 PM EDT Narrative 10/09/2024 9:44 PM EDT ? [facility] ?[address] ?[place] [address] ?XRay Report ? Signed ? Patient: Dank Jr,Mike K ?MR#: [id number] ?? [id number] ? : 1985 ?Acct:[id number] ? Age/Sex: 39 / M ?ADM Date: 10/09/24 ? Loc: HO.ED ? Attending Dr: ? Ordering Physician: Alfonso Gregg ?? Date of Service: 10/09/24 ?? Procedure(s): XR foot RT 2V ?? Accession Number(s): [id number] ? cc: Alfonso Gregg; [facility] ? CLINICAL HISTORY: foot, big toe pain ? 3 view right foot ? Comparison: None ? Findings: ?? Bones intact. No dislocations. ?? No significant arthritic change or erosions. ?? No ankle effusion. ?? No radiopaque foreign body. ? IMPRESSION: ?? 1. No acute findings. ? This document has been electronically signed by: Tess Landers MD on ?? 10/09/2024 21:42:24 ? Dictated By: ?Tess Landers MD ? Signed By: ?<Electronically signed by Tess Landers MD in OV> ?10/09/242142 ? DD/ 41 ? TD/TT: 10/09/242141 ? Dress Fitter: ? Procedure Note Papi, Marsha - 10/09/[address] [address] XRay Report Signed Patient: Mike Weems Jr KMR#: [id number] : 1985Acct:[id number] Age/Sex: 39 / MADM Date: 10/09/24 Loc: HO.ED Attending Dr: Ordering Physician: Alfonso Gregg Date of Service: 10/09/24 Procedure(s): XR foot RT 2V Accession Number(s): [id number] cc: Alfonso Gregg; [facility] CLINICAL HISTORY: foot, big toe pain 3 view right foot Comparison: None Findings: Bones intact. No dislocations. No significant arthritic change or erosions. No ankle effusion. No radiopaque foreign body. IMPRESSION: 1. No acute findings. This document has been electronically signed by: Tess Landers MD on 10/09/2024 21:42:24 Dictated By: Tess Landers MD Signed By: <Electronically signed by Tess Landers MD in OV> 10/09/242142 DD/ 41 TD/TT: 10/09/242141 Dress Fitter: [facility] External Provider IMG XR PROCEDURES Final Result * (ABNORMAL) Sed Rate by Modified Nirav (10/09/2024 9:25 PM EDT) Pathologist [facility] Erythrocyte Sedimentation Rate 36(H) 0 - 15 MM/HR [facility] Comment:Patients with polycy themia and many hemoglobin abnormalitiesmay have depressed sed rates whereas patients with anemiamay have elevated sed rates. 10/09/2024 9:25 PM EDT 10/09/2024 9:29 PM EDT Generic External Data Provider LAB BLOOD ORDERAB LES Final Result Performing Organization Address [facility] Co de Phone Number [facility] [address] [place] [phone] * (ABNORMAL) C-reactive Protein (10/09/2024 9:25 PM EDT) Pathologist [facility] C Reactive Protein 1.86(H) < or = 0.50 mg/dL [facility] 10/09/2024 9:25 PM EDT 10/09/2024 9:29 PM EDT Generic External Data Provider LAB BLOOD ORDERAB LES Final Result Performing Organization Address [facility] Co de Phone Number [facility] [address] [place] [phone] * (ABNORMAL) Uric acid (10/09/2024 9:25 PM EDT) Uric Acid 7.2(H) 3.4 - 7.0 mg/dL [facility] 10/09/2024 9:25 PM EDT 10/09/2024 9:29 PM EDT us Generic External Data Provider LAB BLOOD ORDERAB LES Final Result [facility] [address] [place] [address] [phone] * (ABNORMAL) Comprehensive Metabolic Panel (10/09/2024 9:25 PM EDT) Sodium 140 135 - 145 mmol/L [facility] Potassium 3.7 3.3 - 5.1 mmol/L [facility] Chloride 103 96 - 108 mmol/L [facility] Carbon Dioxide 27 22 - 29 mmol/L [facility] Anion Gap 14 12 - 20 [facility] Urea Nitrogen (BUN) 15 9 - 16 mg/dL [facility] Creatinine, Serum 0.97 0.5 - 1.4 mg/dL [facility] Creatinine Clr Calc Pharmacy 154.2 [facility] Comment:eGFR (calculated fro m the MDRD study equation) and eCrCl(calculated from the Cockcroft-Gault equation) are based ondifferent parameters and may not yield comparable results.If eCrCl result is absurd, please check patient'sheight/weight. Estimated Glomerular Filt Rate >60 [facility] Comment:Chronic Kidney Disea se: Estimated GFR < 60 mL/min/1.45g8Sirhob Kidney Disease: Estimated GFR < 15 mL/min/1.73m2 Glucose 131(H) 60 - 115 mg/dL [facility] Calcium 9.3 8.4 - 10.2 mg/dL [facility] Bilirubin, Total 0.2 0.0 - 1.0 mg/dL [facility] Aspartate Amino Transferase 24 5 - 37 U/L [facility] Alanine Aminotransferase 24 0 - 40 U/L [facility] Total Protein 7.2 6.5 - 8.0 g/dL [facility] Albumin Level 4.2 3.5 - 5.0 g/dL [facility] Alkaline Phosphatase 66 39 - 117 U/L [facility] 10/09/2024 9:25 PM EDT 10/09/2024 9:29 PM EDT Generic External Data Provider LAB BLOOD ORDERAB LES Final Result Performing Organization Address City/[facility] Co de Phone Number [facility] [address] [place] [phone] * Partial Thromboplastin Time, Activated (APTT) (10/09/2024 9:25 PM EDT) Partial Thromboplastin Time 36.6 26.0 - 36.8 SEC [facility] Comment:For information rega rding the monitoring of direct thrombininhibitors, please refer to Pharmacy. 10/09/2024 9:25 PM EDT 10/09/2024 9:29 PM EDT Generic External Data Provider LAB BLOOD ORDERAB LES Final Result Performing Organization Address [facility] Co de Phone Number [facility] [address] [place] [phone] * Prothrombin Time-INR (10/09/2024 9:25 PM EDT) Prothrombin Time 12.3 10.9 - 12.4 SEC [facility] INTERNATIONAL NORM RATIO 1.1 0.9 - 1.1 [facility] Comment:INTERNATIONAL NORMAL IZED RATIO (INR) REFERENCE RANGES Reference RangeFor patients not on anticoagulant therapy: 0.9 - 1.1INR ranges for oral anticoagulanttherapy:For prevention and treatment of venous thrombosis and pulmonary embolism: 2.0 - 3.0For acute myocardial infarction with aspirin therapy: 2.0 - 3.0For acute myocardial infarction without aspirin therapy: 3.0 - 4.0For patients with mechanical prosthetic heart valves: 2.5 - 3.5 10/09/2024 9:25 PM EDT 10/09/2024 9:29 PM EDT us Generic External Data Provider LAB BLOOD ORDERAB LES Final Result [facility] [address] [place], [place] [phone] * (ABNORMAL) CBC auto differential (10/09/2024 9:25 PM EDT) White Blood Count 9.3 4.8 - 10.8 X10*3/uL [facility] Red Blood Count 4.44(L) 4.60 - 5.80 X10*6/uL [facility] Hemoglobin 11.0(L) 14.0 - 18.0 g/dl [facility] Hematocrit 34.4(L) 42.0 - 52.0 % [facility] Mean Corpuscular Volume 77.5(L) 80.0 - 98.0 fL [facility] Mean Corpuscular Hemoglobin 24.8(L) 27.0 - 33.0 pg [facility] Mean Corpuscular HGB Conc 32.0 31.0 - 36.0 g/dl [facility] Red Cell Distribution Width 15.2 11.0 - 16.0 % [facility] Platelet Count 440(H) 160 - 400 X10*3/uL [facility] Mean Platelet Volume 9.1(L) 9.4 - 12.4 fL [facility] Neutrophils Percent Auto 77.8(H) 45 - 73 % [facility] Imm Gran Pct Auto 0.5(H) 0.0 - 0.4 % [facility] Lymphocytes Percent Auto 13.2(L) 20 - 40 % [facility] Monocytes Percent Auto 6.6 2 - 11 % [facility] Eosinophils Percent Auto 1.7 0 - 4 % [facility] Basophils Percent Auto 0.2 0 - 2 % [facility] NRBC Pct Auto 0.0 0.0 - 0.2 /100WBC [facility] Neutrophils Absolute Auto 7.2 2.0 - 8.3 x10*3/uL [facility] Imm Gran Abs Auto 0.05(H) 0.00 - 0.03 X10*3/uL [facility] Lymphocytes Absolute Auto 1.2 1.2 - 4.9 X10*3/uL [facility] Monocytes Absolute Auto 0.6 0.1 - 1.2 X10*3/uL [facility] Eosinophils Absolute Auto 0.2 0.0 - 0.4 X10*3/uL [facility] Basophils Absolute Auto 0.0 0.0 - 0.2 X10*3/uL [facility] NRBC Abs Auto 0.000 0.0 - 0.012 X10*3/uL [facility] 10/09/2024 9:25 PM EDT 10/09/2024 9:29 PM EDT us Generic External Data Provider LAB BLOOD ORDERAB LES Final Result [facility] [address] [place] [phone] * US VENOUS DUPLEX LE RT (10/09/2024 9:25 PM EDT) Anatomical Region Laterality Modality Abdomen Ultrasound 10/09/2024 9:25 PM EDT Narrative 10/09/2024 9:27 PM EDT ? [facility] ?[address] ?[place] [address] ? Ultrasound Report ? Signed ? Patient: Dank Jr,Mike K ?MR#: [id number] ?? [id number] ? : 1985 ?Acct:[id number] ? Age/Sex: 39 / M ?ADM Date: 04/22/25 ? Loc: HO.ED ? Attending Dr: ? Ordering Physician: Alfonso Gregg ?? Date of Service: 10/09/24 ?? Procedure(s): US venous duplex LE RT ?? Accession Number(s): [id number] ? cc: Alfonso Gregg; [facility] [employer] ? CLINICAL HISTORY: right foot swelling ? Venous duplex ultrasound right lower extremity ? Comparison: None ? Findings: ?? The visualized deep veins are fully compressible with normal Doppler color ?? flow and spectral tracings. ?? No popliteal cyst. ? IMPRESSION: ?? 1. Negative for right lower extremity deep vein thrombosis. ? This document has been electronically signed by: Tess Landers MD on ?? 10/09/2024 21:25:59 ? Dictated By: ?Tess Landers MD ? Signed By: ?<Electronically signed by Tess Landers MD in OV> ?10/09/242126 ? DD/ 24 ? TD/TT: 10/09/242124 ? Dress Fitter: ? Procedure Note Marsha Turpin - 10/09/2024 [place] [address] Ultrasound Report Signed Patient: Mike Weems Jr KMR#: [id number] : 1985Acct:[id number] Age/Sex: 39 / MADM Date: 10/09/24 Loc: HO.ED Attending Dr: Ordering Physician: Alfonso Gregg Date of Service: 10/09/24 Procedure(s): US venous duplex LE RT Accession Number(s): [id number] cc: Alfonso Gregg; [facility] CLINICAL HISTORY: right foot swelling Venous duplex ultrasound right lower extremity Comparison: None Findings: The visualized deep veins are fully compressible with normal Doppler color flow and spectral tracings. No popliteal cyst. IMPRESSION: 1. Negative for right lower extremity deep vein thrombosis. This document has been electronically signed by: Tess Landers MD on 10/09/2024 21:25:59 Dictated By: Tess Landers MD Signed By: <Electronically signed by Tess Landers MD in OV> 10/09/242126 DD/ 24 TD/TT: 10/09/242124 Dress Fitter: us [facility] External Provider IMG US PROCEDURES Final Result documented in this encounter Visit Diagnoses Not on filedocumented in this encounter Additional Health Concerns Assessment Noted Time PHQ-9 Depression Total Score: 15 023 10:49 AM EST documented as of this encounter Care Teams Mycologist Relationship Specialty Start Date End Date Kade CONNIE Paige [address] [place] [phone] PCP - General Family Medicine 08/25/22 documented as of this encounter
--- OUTSIDE RECORDS SUMMARY | 2024-10-09 23:11 | XMS_ITS ---
Author Organization [facility] Address [address] [place] [address] Care Team Providers Care Newspaper Photographer Name Role Phone Fernanda Siu PA-C Primary Care Provider [phone] [facility] Program Status:Enrolled (Active) Start date:03/01/2022 Enrollment date:03/01/2022 Case Team Name Relationship Phone Mich Sainz PharmD (Responsible Staff) [phone] Continued Care and Services Coordination
--- OUTSIDE RECORDS SUMMARY | 2024-10-09 23:11 | XMS_ITS | Clinical Summary ---
Author Organization [employer] Address [address] [facility] [address] [place] [address] Care Team Providers Care Pyrotechnic Mixer Name Role Phone Grecia Braun [facility] Primary Care Provider [phone] Allergies Active Allergy Reactions Criticality Noted Date Comments Amoxicillin 01/28/2023 Penicillins High 08/26/2014 Other reaction(s): Other (See Comments), Rash Doesn't know reaction - allergy reaction at a young age As per patient does not remember what reaction he had but was hospitalized for about a month when younger. Medications Eliquis 2.5 MG tablet Take 2.5 mg by mouth 2 times daily. 07/26/19 23 Active ARIPiprazole (Abilify) 30 MG tablet Take 30 mg by mouth in the morning. 06/30/19 23 Active cloNIDine (Catapres) 0.2 MG tablet Take 0.2 mg by mouth at bedtime. 07/26/19 23 Active gabapentin (Neurontin) 400 MG capsule TAKE 1 CAPSULE BY MOUTH EVERY DAY AT NIGHT 07/10/19 23 Active nicotine (Nicoderm, Step 1) 21 MG/24HR patch PLACE 1 PATCH ONTO THE SKIN ONCE DAILY (EVERY 24 HOURS) 01/29/20 22 Active traZODone (Desyrel) 100 MG tablet Take 100 mg by mouth if needed at bedtime. 08/08/19 23 Active venlafaxine XR (Effexor XR) 150 MG 24 hr capsule TAKE 2 CAPSULE BY MOUTH ONCE A DAY 08/14/19 23 Active Sodium Fluoride (PreviDent 5000 Booster Plus) 1.1 % pasteIndications: Dental caries [place] teeth for 2 minutes, morning and night. Spit, do not rinse. Do not eat or drink anything for 30 minutes following brushing. 112 g 3 11/30/19 23 Active dulaglutide (Trulicity) 0.75 MG/0.5ML solution pen-injectorIndic ations:Type 2 diabetes mellitus with hyperglycemia, without long-term current use of insulin (CMS/HCC) Inject 0.75 mg under the skin 1 (one) time per week. 4 each 11 11/30/19 23 Active amLODIPine (Norvasc) 10 MG tabletIndications :Essential hypertension TAKE 1 TABLET BY MOUTH EVERY DAY IN THE MORNING 90 tablet 3 09/14/19 24 Active olmesartan (Benicar) 40 MG tabletIndications :Primary hypertension Take 1 tablet (40 mg) by mouth Once per day. 30 tablet 11 11/18/19 24 025 Active rosuvastatin (Crestor) 10 MG tabletIndications :Mixed hyperlipidemia TAKE 1 TABLET BY MOUTH EVERY DAY IN THE MORNING 90 tablet 1 05/11/20 24 Active metFORMIN (Glucophage) 500 MG tablet Take 1 tablet (500 mg) by mouth with breakfast and with evening meal. 60 tablet 5 06/11/20 24 Active Dulaglutide (Trulicity) 0.75 MG/0.5ML solution auto-injector Inject 0.5 mL (0.75 mg) under the skin 1 (one) time per week. 2 mL 5 06/11/20 24 Active chlorthalidone (Hygroton) 25 MG tabletIndications :Essential hypertension TAKE 1/2 TABLET BY MOUTH EVERY DAY 45 tablet 3 07/06/19 25 Active Acetaminophen Extra Strength 500 MG tabletIndications :Dental abscess TAKE 1 TABLET BY MOUTH EVERY 6 (SIX) HOURS IF NEEDED FOR MILD PAIN FOR UP TO 20 DOSES. 20 tablet 09/15/19 25 Active acetaminophen (Tylenol) 500 MG tabletIndications :Dental abscess TAKE 1 TABLET BY MOUTH EVERY 6 (SIX) HOURS IF NEEDED FOR MILD PAIN FOR UP TO 20 DOSES. 20 tablet 04/13/20 24 025 Discontinued Active Problems Problem Noted Date Diagnosed Date Hyperlipidemia 11/29/2022 Overview (11/29/2022): ?? Rosuvastatin 10mg daily Assessment & Plan (12/02/2022 10:23 AM EDT): ?? Repeat lipids today Anxiety and depression 08/25/2022 Bipolar 2 disorder 08/25/2022 Overview (11/29/2022): ?? Abilify 30mg ?? Clonidine 0.2mg ?? Venlafaxine 300mg ?? Trazodone Established with psychiatry and therapist Obesity, morbid, BMI 50 or higher 08/25/2022 GERD (gastroesophageal reflux disease) 3 Uncontrolled type 2 diabetes mellitus with hyper glycemia 05/01/2022 Overview (10/13/2023): Metformin Trulicity .75 Current A1c: BMP: 08/2022 Microalbumin: Pending Foot Exam: Complete at follow up Eye Exam: Followed by [facility] eye care Lipid panel: 08/2022 ASCVD: 13% Statin: Yes ASA: No CRUZ/ARB: yes Encouraged regular aerobic exercise for improved glycemic control Encouraged daily foot checks Encouraged lean protein snacks and to avoid foods high in sugar and simple carbohydrates Treatment Goals: A1c goal: <7% FBG goal: <130 2 hour post prandial goal: <180 Assessment & Plan (12/02/2022 10:26 AM EDT): Lab Results Component Value Date HGBA1C 6.6 (A) 08/25/2022 ?? START trulicity .75mg subcutaneous daily. Reviewed administration, risks, side effects Smoker 09/19/2020 HTN (hypertension) 04/05/2017 Overview (11/18/2023): Olmesartan 40mg daily Amlodipine 10mg Chlorthalidone 25mg Maintenance: BMP: 08/2022 Lipid Panel: 08/2022 ASCVD Risk: 13% EKG: Obtain baseline at f/u - Aerobic exercise to reduce BP. Initial goal of 30 min walk 3-5x/week. Increase as tolerated. - low-sodium diet (goal: <2g/day) and heart healthy diet such as DASH to reduce BP and prevent ASCVD. - Home BP monitoring 1-2 x day with goal of <140/90. - Seek immediate medical attention for chest pain, palpitations, SOB, syncope, or sudden changes in mental status. - Do not change or discontinue current prescriptions without first consulting health care provider Assessment & Plan (12/02/2022 10:21 AM EDT): ?? Well controlled ?? Continue current regimen Pulmonary embolism, bilateral 01/03/2015 Overview (12/02/2022): ?? Unprovoked ?? On eliquis 2.5mg b.i.d ?? Diagnosed at [facility] in 2014 Assessment & Plan (12/02/2022 10:23 AM EDT): ?? Unclear if patient needs to continue eliquis indefinitely ?? Will refer to heme for hypercoagulability evaluation and recommendation re ongoing anticoagulation ?? Pt advised that to reduce risk of intraoperative bleeding patient should hold eliquis 1 day before upcoming dental extraction and resume eliquis once hemostasis has occurred postop. Will notify dental team as well Resolved Problems Problem Noted Date Diagnosed Date Resolved Date Elevated blood-pressure read ing without diagnosis of hypertension 08/26/2014 11/29/2022 Encounters Date Type Department Care Team Description 10/09/2024 Orders Only [facility] External Provider, [facility] 09/12/2024 Refill [facility] [address] [place] [address] Grecia Braun FNP Dental abscess 08/31/2024 Population Health Risk Score [facility] ([facility] Department [address] [place] [address] [phone] Provider, Population Health Generic 07/25/2024 Telephone [facility] [address] [place] [address] Grecia Braun FNP No Show 07/12/2024 Patient Outreach [facility] [address] [place] [address] Grecia Braun FNP Pre-visit Planning (SDOH screening negative and tobacco screening negative) from Last 3 Months Immunizations Name Administration Dates Next Due Influenza injectable quadrivalent preservative f ree 03/27/2015,09/12/2014 Td (adult), 5 Lf tetanus tox oid, preservative free, adsorbed 06/28/2015 Tdap 01/22/2022 Family History Medical History Relation Name Comments Brain cancer Maternal Grandmother Heart attack Paternal Grandmother Heart disease Paternal Grandmother Stroke Paternal Grandmother Colon cancer Neg Hx Prostate cancer Neg Hx Relation Name Status Comments Maternal Grandmother Paternal Grandmother Social History Tobacco Use Types Packs/Day Years Used Date Smoking Tobacco: Every Day Cigarettes Smokeless Tobacco: Never Tobacco Cessation:Ready to Q uit: Not Asked; Counseling Given: Not Answered Alcohol Use Standard Drinks/Week Comments Never 0 [...] Orientation Straight 04/19/2022 10 :27 AM EDT Last Filed Vital Signs Vital Sign Reading Time Taken Comments Blood Pressure 151/100 03/12/2024 8:47 AM EDT Pulse 76 03/12/2024 8:47 AM EDT Temperature 36.6 ??C (97.9 ??F) 03/12/2024 8:47 AM ED T Respiratory Rate 18 03/12/2024 8:47 AM EDT Oxygen Saturation 99% 03/12/2024 8:47 AM EDT Inhaled Oxygen Concentration - - Weight 156 kg (343 lb) 03/12/2024 8:47 AM EDT Height 180.3 cm (5' 11 ) 09/27/2023 9:59 AM EDT Body Mass Index 47.84 09/27/2023 9:59 AM EDT Plan of Treatment Upcoming Encounters Date Type Department Care Team (Late st Contact Info) Description 11/14/2024 9:00 AM EDT Office Visit [facility] [address] [place] [address] [facility], [facility] [address] [place], [place] [phone] Health Maintenance Due Date Last Done Comments Diabetes: Foot Exam 1997 Eye Exam 1997 Alcohol/Substance Use Screening 1999 Family Planning (PISQ) 2002 Diabetes: Urine Protein Screening 2006 Hepatitis B Vaccines (1 of 3 - 19+ 3-dose series) 2006 Pneumococcal Vaccine: Pediatrics (0 to 5 Years) and At-Risk Patients (6 to 49) Years) (1 of 2 - PCV) 2006 Depression Monitoring 02/25/2023 08/25/2022, 023 Diabetes: Hemoglobin A1C 02/25/2023 08/25/2022 Dental Oral Exam 06/01/2023 11/29/2022, 02/2022, 09/12/2015 Dental Prophylaxis 06/10/2023 12/08/2022 Depression Screening 08/26/2023 08/25/2022, 08/26/19 Lipid Panel 11/30/2023 11/29/2022, 08/25/2022 Dental X-Ray: Bitewings 01/30/2024 01/29/20, 11/29/2022, 04/28/2022, Additional history exists COVID-19 Vaccine ( season) 2024 Influenza Vaccine (#1) 2024 03/27/2015, 2014 Tobacco Screening 03/12/2025 03/12/2024 SDOH Screening 07/12/2025 07/12/2024 Dental X-Ray: Full Mouth 11/13/2025 023, 04/28/2022, 09/12/2015 DTaP/Tdap/Td Vaccines (2 - Td or Tdap) 01/23/2032 01/22/2022, 06/28/2015 Zoster Vaccines (1 of 2) 2037 RSV Patients and Patients Aged 60 years or older (1 - 1-dose 75+ series) 2062 HIV Screening Completed 08/25/2022 Hepatitis C Screening Completed 08/25/2022 HIB Vaccines Aged Out No longer eligi ble based on patient's age to complete this topic HPV Vaccines Aged Out No longer eligi ble based on patient's age to complete this topic Hepatitis A Vaccines Aged Out No long er eligible based on patient's age to complete this topic IPV Vaccines Aged Out No longer eligi ble based on patient's age to complete this topic Meningococcal Vaccine Aged Out No leni barbara eligible based on patient's age to complete this topic RSV under 20 months Aged Out No longe r eligible based on patient's age to complete this topic Rotavirus Vaccines Aged Out No longer eligible based on patient's age to complete this topic Procedures Procedure Name Priority Date/Time Associated Diagnosis Comments XR FOOT 1-2 VIEWS RIGHT Routine 10/09/2024 9:42 PM EDT SED RATE BY MODIFIED WESTERGREN Routine 10/09/2024 9:25 PM EDT C-REACTIVE PROTEIN Routine 10/09/2024 9: 25 PM EDT URIC ACID Routine 10/09/2024 9:25 PM EDT COMPREHENSIVE METABOLIC PANEL Routine 10/09/2024 9:25 PM EDT APTT Routine 10/09/2024 9:25 PM EDT PROTHROMBIN TIME-INR Routine 10/09/2024 9:25 PM EDT CBC WITH AUTO DIFFERENTIAL Routine 10/09/2024 9:25 PM EDT US VENOUS DUPLEX LE RT Routine 10/09/2024 9:25 PM EDT BITEWING - SINGLE RADIOGRAPHIC IMAGE Routine 01/28/2023 11:30 AM EDT PROPHYLAXIS - ADULT Routine 12/08/2022 1 0:00 AM EDT LIPID PANEL, STANDARD Routine 11/29/2022 1:37 PM EDT Mixed hyperlipidemia PERIODIC ORAL EVALUATION - ESTABLISHED PATIENT Routine 11/29/2022 10:00 AM EDT Dental caries PANORAMIC RADIOGRAPHIC IMAGE Routine 11/12/2022 11:30 AM EDT Dental abscess HEPATITIS C AB W/REFL TO HCV RNA, QN, PCR Routine 08/25/2022 11:34 AM EST Healthcare maintenance HIV 1/2 ANTIGEN/ANTIBODY, FOURTH GENERATION W/RFL Routine 08/25/2022 11:34 AM EST Healthcare maintenance POCT GLYCATED HEMOGLOBIN, TOTAL Routine 08/25/2022 11:25 AM EST Uncontrolled type 2 diabetes mellitus with hyperglycemia (CMS/HCC) from Last 3 Months or Most Recently Relevant to Health Maintenance Results * XR Foot 1-2 Views Right (10/09/2024 9:42 PM EDT) Anatomical Region Laterality Modality Lower Extremities, Foot Right [facility] 10/09/2024 9:42 PM EDT Narrative 10/09/2024 9:44 PM EDT ? [facility] ?[address] ?[place] [address] ?XRay Report ? Signed ? Patient: Dank Jr,Mike K ?MR#: [id number] ?? [id number] ? : 1985 ?Acct:[id number] ? Age/Sex: 39 / M ?ADM Date: 04/22/25 ? Loc: HO.ED ? Attending Dr: ? Ordering Physician: Alfonso Gregg ?? Date of Service: 10/09/24 ?? Procedure(s): XR foot RT 2V ?? Accession Number(s): [id number] ? cc: Alfonso Gregg; Grecia Braun [employer] REPA[employer]ER ? CLINICAL HISTORY: foot, big toe pain [...] signed by Tess Landers MD in OV> ?10/09/243 ? DD/ 41 ? TD/TT: 10/09/242141 ? Roguer: ? Procedure Note Papi, Image - 10/09/2024 [place] [address] XRay Report Signed Patient: Mike Weems Jr KMR#: [id number] : 1985Acct:[id number] Age/Sex: 39 / MADM Date: 10/09/24 Loc: .ED Attending Dr: Ordering Physician: Alfonso Gregg Date of Service: 10/09/24 Procedure(s): XR foot RT 2V Accession Number(s): [id number] cc: Alfonso Gregg; [facility] CLINICAL HISTORY: foot, big toe pain 3 [...] in OV> 10/09/242142 DD/ 41 TD/TT: 10/09/242141 Roguer: [facility] External Provider IMG XR PROCEDURES Final Result * US VENOUS DUPLEX LE RT (10/09/2024 9:25 PM EDT) Anatomical Region Laterality Modality Abdomen Ultrasound 10/09/2024 9:25 PM EDT Narrative 10/09/2024 9:27 PM EDT ? [facility] ?[address] ?[place] [address] ? Ultrasound Report ? Signed ? Patient: Dank Jr,Mike K ?MR#: [id number] ?? [id number] ? : 1985 ?Acct:[id number] ? Age/Sex: 39 / M ?ADM Date: 10/09/24 ? Loc: HO.ED ? Attending Dr: ? Ordering Physician: Alfonso Gregg ?? Date of Service: 10/09/24 ?? Procedure(s): US venous duplex LE RT ?? Accession Number(s): [id number] ? cc: Alfonso Gregg; Grecia BraunP ? CLINICAL HISTORY: right foot swelling ? [...] MD ? Signed By: ?<Electronically signed by Sijo V Anshul, MD in OV> ?10/09/242126 ? DD/ 24 ? TD/TT: 10/09/242124 ? Roguer: ? Procedure Note Marsha Turpin - 10/09/2024 [place] [address] Ultrasound Report Signed Patient: Mike Weems Jr KMR#: [id number] : 1985Acct:[id number] Age/Sex: 39 / MADM Date: 10/09/24 Loc: HO.ED Attending Dr: Ordering Physician: Alfonso Gregg Date of Service: 10/09/24 Procedure(s): US venous duplex LE RT Accession Number(s): [id number] cc: Alfonso Gregg; Grecia Braun [facility] CLINICAL HISTORY: right foot swelling Venous duplex [...] in OV> 10/09/242126 DD/ 24 TD/TT: 10/09/242124 Roguer: us [facility] External Provider IMG US PROCEDURES Final Result * (ABNORMAL) CBC auto differential (10/09/2024 9:25 PM EDT) White Blood Count 9.3 4.8 - 10.8 X10*3/uL [facility] Red Blood Count 4.44(L) 4.60 - 5.80 X10*6/uL [facility] Hemoglobin 11.0(L) 14.0 - 18.0 g/dl [facility] Hematocrit 34.4(L) 42.0 - 52.0 % [facility] Mean Corpuscular Volume 77.5(L) 80.0 - 98.0 fL [facility] Mean Corpuscular Hemoglobin 24.8(L) 27.0 - 33.0 pg [facility] Mean Corpuscular HGB Conc 32.0 31.0 - 36.0 g/dl [facility] Red Cell Distribution Width 15.2 11.0 - 16.0 % [facility] Platelet Count 440(H) 160 - 400 X10*3/uL [facility] Mean Platelet Volume 9.1(L) 9.4 - 12.4 fL [facility] Neutrophils Percent Auto 77.8(H) 45 - 73 % [facility] Imm Gran Pct Auto 0.5(H) 0.0 - 0.4 % [facility] Lymphocytes Percent Auto 13.2(L) 20 - 40 % [facility] Monocytes Percent Auto 6.6 2 - 11 % [facility] Eosinophils Percent Auto 1.7 0 - 4 % [facility] Basophils Percent Auto 0.2 0 - 2 % [facility] NRBC Pct Auto 0.0 0.0 - 0.2 /100WBC [facility] Neutrophils Absolute Auto 7.2 2.0 - 8.3 x10*3/uL [facility] Imm Gran Abs Auto 0.05(H) 0.00 - 0.03 X10*3/uL [facility] Lymphocytes Absolute Auto 1.2 1.2 - 4.9 X10*3/uL [facility] Monocytes Absolute Auto 0.6 0.1 - 1.2 X10*3/uL [facility] Eosinophils Absolute Auto 0.2 0.0 - 0.4 X10*3/uL [facility] Basophils Absolute Auto 0.0 0.0 - 0.2 X10*3/uL [facility] NRBC Abs Auto 0.000 0.0 - 0.012 X10*3/uL [facility] 10/09/2024 9:25 PM EDT 10/09/2024 9:29 PM EDT us Generic External Data Provider LAB BLOOD ORDERAB LES Final Result Performing Organization Address [facility]/ZIP Co de Phone Number [facility] [address] [place] [address] [phone] * Partial Thromboplastin Time, Activated (APTT) (10/09/2024 9:25 PM EDT) Partial Thromboplastin Time 36.6 26.0 - 36.8 SEC [facility] Comment:For information rega rding the monitoring of direct thrombininhibitors, please refer to Pharmacy. 10/09/2024 9:25 PM EDT 10/09/2024 9:29 PM EDT us Generic External Data Provider LAB BLOOD ORDERAB LES Final Result [facility] [address] [place] [address] [phone] * (ABNORMAL) Sed Rate by Modified Westergren (10/09/2024 9:25 PM EDT) Erythrocyte Sedimentation Rate 36(H) 0 - 15 MM/HR [facility] Comment:Patients with polycy themia and many hemoglobin abnormalitiesmay have depressed sed rates whereas patients with anemiamay have elevated sed rates. 10/09/2024 9:25 PM EDT 10/09/2024 9:29 PM EDT Generic External Data Provider LAB BLOOD ORDERAB LES Final Result Performing Organization Address [facility] Co de Phone Number [facility] [address] [place] [phone] * Prothrombin Time-INR (10/09/2024 9:25 PM EDT) Prothrombin Time 12.3 10.9 - 12.4 SEC [facility] INTERNATIONAL NORM RATIO 1.1 0.9 - 1.1 [facility] Comment:INTERNATIONAL NORMAL IZED RATIO (INR) REFERENCE [...] ORDERAB LES Final Result Performing Organization Address [facility] Co de Phone Number [facility] [address] [place] [phone] * (ABNORMAL) C-reactive Protein (10/09/2024 9:25 PM EDT) Pathologist [facility] C Reactive Protein 1.86(H) < or = 0.50 mg/dL [facility] 10/09/2024 9:25 PM EDT 10/09/2024 9:29 PM EDT Generic External Data Provider LAB BLOOD ORDERAB LES Final Result Performing Organization Address [facility] Co de Phone Number [facility] [address] [place] [phone] * (ABNORMAL) Uric acid (10/09/2024 9:25 PM EDT) Pathologist [facility] Uric Acid 7.2(H) 3.4 - 7.0 mg/dL [facility] 10/09/2024 9:25 PM EDT 10/09/2024 9:29 PM EDT Generic External Data Provider LAB BLOOD ORDERAB LES Final Result Performing Organization Address [facility] Co de Phone Number [facility] [address] [place] [phone] * (ABNORMAL) Comprehensive Metabolic Panel (10/09/2024 9:25 PM EDT) Pathologist [facility] Sodium 140 135 - 145 mmol/L [facility] Potassium 3.7 3.3 - 5.1 mmol/L [facility] Chloride 103 96 - 108 mmol/L [facility] Carbon Dioxide 27 22 - 29 mmol/L [facility] Anion Gap 14 12 - 20 [facility] Urea Nitrogen (BUN) 15 9 - 16 mg/dL [facility] Creatinine, Serum 0.97 0.5 - 1.4 mg/dL [facility] Creatinine Clr Calc Pharmacy 154.2 [facility] Comment:eGFR (calculated fro m the MDRD study equation) and eCrCl(calculated from the Cockcroft-Gault equation) are based ondifferent parameters and may not yield comparable results.If eCrCl result is absurd, please check patient'sheight/weight. Estimated Glomerular Filt Rate >60 [facility] Comment:Chronic Kidney Disea se: Estimated GFR < 60 mL/min/[id number] Kidney Disease: Estimated GFR < 15 mL/min/1.73m2 Glucose 131(H) 60 - 115 mg/dL [facility] Calcium 9.3 8.4 - 10.2 mg/dL [facility] Bilirubin, Total 0.2 0.0 - 1.0 mg/dL [facility] Aspartate Amino Transferase 24 5 - 37 U/L [facility] Alanine Aminotransferase 24 0 - 40 U/L [facility] Total Protein 7.2 6.5 - 8.0 g/dL [facility] Albumin Level 4.2 3.5 - 5.0 g/dL [facility] Alkaline Phosphatase 66 39 - 117 U/L [facility] 10/09/2024 9:25 PM EDT 10/09/2024 9:29 PM EDT us Generic External Data Provider LAB BLOOD ORDERAB LES Final Result [facility] [address] [place] [address] [phone] * Lipid Panel, Standard (11/29/2022 1:37 PM EDT) Cholesterol, Total 130 <200 mg/dL [facility] HDL Cholesterol 44 > OR = 40 mg/dL [facility] Triglycerides 115 <150 mg/dL [facility] LDL Cholesterol 66 mg/dL (calc) [facility] Comment: Reference range: <100 Desirable range <100 mg/dL for primary prevention; ?? <70 mg/dL for patients with CHD or diabetic patients with > or = 2 CHD risk factors. LDL-C is now calculated using the Rashaun calculation, which is a validated novel method providing better accuracy than the Friedewald equation in the estimation of LDL-C. Julio BENSON et al. JAMES. 2013;310(19): 4150-8223 (http://education.[employer]/faq/TWE026) Chol/HDLC Ratio 3.0 <5.0 (calc) [facility] Non-HDL Cholesterol 86 <130 mg/dL (calc) [facility] Comment: For patients with diabetes plus 1 major ASCVD risk factor, treating to a non-HDL-C goal of <100 mg/dL (LDL-C of <70 mg/dL) is considered a therapeutic option. Blood Venous blood specimen / Unknown 11/29/2022 1:37 PM EDT 11/29/2022 1:37 PM EDT Narrative [facility] - 11/30/2022 6:34 AM EDT FASTING:YES FASTING: YES [facility] LAB BLOOD ORDERABLES Final Re sult [facility] [address], [place] [phone] [facility] [address] [place] [phone] * Hepatitis C Antibody with Reflex to HCV, RNA, Quantitative, Real-Time PCR (08/25/2022 11:34 AM EST) Hepatitis C Antibody NON-REACT HUSSEIN NON-REACT HUSSEIN [facility] Index 0.07 <1.00 [facility] Comment: HCV antibody was non-reactive. There is no laboratory evidence of HCV infection. In most cases, no further action is required. However, if recent HCV exposure is suspected, a test for HCV RNA (test code 08202) is suggested. For additional information please refer to http://education.[employer]/faq/SZZ47z1 (This link is being provided for informational/ educational purposes only.) Blood Venous blood specimen / Unknown 08/25/2022 11:34 AM EST 08/25/2022 11:35 AM EST Narrative [facility] - 08/26/2022 11:10 AM EST FASTING:YES FASTING: YES [facility] LAB BLOOD ORDERABLES Final Re sult [facility] [address], [place] [phone] [facility] [address] [facility], ([address]) [place] [address] * HIV-1/2 Antigen and Antibodies, Fourth Generation, with Reflexes (08/25/2022 11:34 AM EST) HIV Antigen/Antibody, 4th Generation NON-REAC TIVE NON-REAC TIVE [facility] [place] [facility] Comment: HIV-1 antigen and HIV-1/HIV-2 antibodies were not detected. There is no laboratory evidence of HIV infection. PLEASE NOTE: This information has been disclosed to you from records whose confidentiality may be protected by state law. ??If your state requires such protection, then the state law prohibits you from making any further disclosure of the information without the specific written consent of the person to whom it pertains, or as otherwise permitted by law. A general authorization for the release of medical or other information is NOT sufficient for this purpose. ?? For additional information please refer to http://education.[employer]/faq/XQN783 (This link is being provided for informational/ educational purposes only.) The performance of this assay has not been clinically validated in patients less than 2 years old. Blood Venous blood specimen / Unknown 08/25/2022 11:34 AM EST 08/25/2022 11:35 AM EST Narrative [facility] - 08/26/2022 11:10 AM EST FASTING:YES FASTING: YES [facility] LAB BLOOD ORDERABLES Final Re sult [facility] [address], [place] [address] [facility] [address] [facility] [facility], ([facility]) [place] [address] * (ABNORMAL) POCT A1C (08/25/2022 11:25 AM EST) Hemoglobin A1C 6.6(A) 4.0 - 6.0 % Blood 08/25/2022 11:2 5 AM EST [facility] METER REPAIRER POINT OF CARE TEST ENTER/EDIT ORDERABLES Final Result from Last 3 Months or Most Recently Relevant to Health Maintenance Insurance [facility] C3 DENTAL-[facility] MEDICAID STAND ADULT Care Teams Pyrotechnic Mixer Relationship Specialty Start Date End Date [place], Grecia, METER REPAIRER [address] [place] [address] PCP - General Family Medicine 08/25/22
--- OUTSIDE RECORDS SUMMARY | 2024-10-09 23:11 | XMS_ITS | Encounter Summary ---
Author Organization [employer] Address [address] [facility] 7t [place] [address] Care Team Providers Care Financial Services Associate Name Role Phone Grecia Braun [facility] Primary Care Provider [phone] Reason for Visit * Reason Onset Date Comments Appointment 01/31/2023 Encounter Details Date Type Department Care Team ([facility] st Contact Info) Description 01/31/2023 Telephone [facility] ADULT DENTAL [address] [place] [address] Yanelis Yanez DDS [address] [place] [address] Appointment Social History Tobacco Use Types Packs/Day Years [...] encounter Miscellaneous Notes * Telephone Encounter - Chelsie Vance - 01/31/2023 1:48 PM EDT Patient calling back in again checking to see what can be done for him. He has felt no relief at all. Medication not working. * Telephone Encounter - Sophie Craven - 01/31/2023 8:33 AM EDT Mike Weems 1985 Patient called in and stated he was seen on 01/28/2023 for emergency visit and was given medication and stated medication is not helping with the pain please advise. documented in this encounter Plan of Treatment Upcoming Encounters Date Type Department Care Team (Late st Contact Info) Description 11/14/2024 9:00 AM EDT Office Visit [facility] MEDICINE [address] [place] [address] Grecia Braun FNP [address] [place] [address] documented as of this encounter Visit Diagnoses Not on filedocumented in this encounter Additional Health Concerns Assessment Noted Time PHQ-9 Depression Total Score: 15 023 10:49 AM EST documented as of this encounter Care Teams Financial Services Associate Relationship Specialty Start Date End Date Grecia Braun FNP [address] [place] [address] PCP - General Family Medicine 08/25/22 documented as of this encounter
--- OUTSIDE RECORDS SUMMARY | 2024-10-09 23:11 | XMS_ITS | Encounter Summary ---
Author Organization [employer] Address [address] [facility] [address] [address] [place] [address] Care Team Providers Care Tobacco Cutter Name Role Phone Grecia Braun [facility] Primary Care Provider [phone] Encounter Details Date Type Department Care Team (Late st Contact Info) Description 06/11/2024 Orders Only [facility] WALK-[facility] [address] [place], [place] [phone] Anshul Kapadia MD [address] [place], [place] [phone] Type 2 diabetes mellitus with hyperglycemia, without long-term current use of insulin ([facility]) Social History Tobacco Use Types Packs/Day Years [...] Description 11/14/2024 9:00 AM EDT Office Visit [facility] MEDICINE [address] [place] [address] Grecia Braun FNP [address] [place] [address] documented as of this encounter Visit Diagnoses Diagnosis Type 2 diabetes mellitus with hyperglycemia, without long-term current use of insulin ([facility]) documented in this encounter Additional Health Concerns Assessment Noted Time PHQ-9 Depression Total Score: 15 023 10:49 AM EST documented as of this encounter Care Teams Tobacco Cutter Relationship Specialty Start Date End Date Grecia Braun FNP [address] [place] [address] PCP - General Family Medicine 08/25/22 documented as of this encounter
--- OUTSIDE RECORDS SUMMARY | 2024-10-09 23:11 | XMS_ITS | Encounter Summary ---
Author Organization [employer] Address [address] [facility] 7t [place] [address] Care Team Providers Care Meat Packager Name Role Phone [facility] Primary Care Provider [phone] Encounter Details Date Type Department Care Team (Late Contact Info) Description 12/29/2022 Abstract [facility] ADULT DENTAL [address] [place], [place] [phone] Dale Knight DMD [address] [place], [place] [phone] Social History Tobacco Use Types Packs/Day Years [...] suspected to have Coronavirus/COVID-19? No / Unsure 12/27/2022 9:50 AM EDT documented as of this encounter Plan of Treatment Upcoming Encounters Date Type Department Care Team (Late Contact Info) Description 11/14/2024 9:00 AM EDT Office Visit [facility] MEDICINE [address] [place], [place] [phone] Grecia Braun FNP [address] [place] [address] documented as of this encounter Visit Diagnoses Not on filedocumented in this encounter Additional Health Concerns Assessment Noted Time PHQ-9 Depression Total Score: 15 023 10:49 AM EST documented as of this encounter Care Teams Meat Packager Relationship Specialty Start Date End Date Grecia Braun FNP [address] [place] [address] PCP - General Family Medicine 08/25/22 documented as of this encounter
[2024-10-09 23:57] VITALS: BP 157/91; PULSE 87; RESP 17; TEMP 36.2; O2SAT 97
[2024-10-10 00:41] VITALS: BP 157/91; PULSE 87; RESP 17; TEMP 36.2; O2SAT 97
== END 2024-10-10 00:41 | disposition home or self-care (01) ==
PROVIDERS: Physician Assistant; Emergency Provider Emergency Medicine; PCP Registered Nurse
DX: M10.071 Idiopathic gout, right ankle and foot (principal); M79.674 Pain in right toe(s); R60.0 Localized edema; Z79.899 Other long term (current) drug therapy; F17.210 Nicotine dependence, cigarettes, uncomplicated
CPT/HCPCS: 36415; 73620; 80053; 84550; 85025; 85610; 85652; 85730; 86140; 93971; 99284

== ENCOUNTER → 2024-10-09 20:36 | Outpatient (BNV) | payer MEDICAID, SELFPAY | PROVIDERS: PCP Registered Nurse; Visit Provider Student in an Organized Health Care Education/Training Program | DX: M79.671 Pain in right foot (principal); M25.474 Effusion, right foot | CPT/HCPCS: 73620; 93971 ==

== ENCOUNTER 2024-11-14 09:32 | Outpatient (REF) | payer MEDICAID, SELFPAY ==
--- OUTSIDE RECORDS SUMMARY | 2024-11-14 10:13 | XMS_ITS | Clinical Summary ---
Author Organization [facility] Address [address] [place] [address] Care Team Providers Care Stoneworking Sander Name Role Phone Fernanda Siu PA-C Primary Care Provider [phone] Source Comments PLEASE NOTE, if this patient is a minor, it may be UNLAWFUL to discuss sensitive information that is contained in these records (such as FAMILY PLANNING, MENTAL HEALTH or SUBSTANCE ABUSE) with the minor patient's parent or other person without the patient's specific authorization.[facility] Allergies Active Allergy Reactions Criticality Noted Date Comments Amoxicillin Other (See Comments) High 01/24/2018 As per patient does not remember what reaction he had but was hospitalized for about a month when younger. Penicillins 04/05/2017 Doesn't know reaction - allergy reaction at a young age Medications venlafaxine (EFFEXOR-XR) 150 mg 24 hr capsule 8 Active ARIPiprazole (ABILIFY) 30 mg tablet Take 30 mg by mouth once daily 1 Active cholecalciferol, vitamin D3, 25 mcg (1,000 unit) capsuleIndication s:Vitamin D deficiency Take 1 Capsule by mouth once daily 30 Capsule 2 1 Active blood sugar diagnostic (FREESTYLE TEST) stripsIndications :New onset type 2 diabetes mellitus (HCC-CMS) 1 Each as needed for high blood sugar Daily 100 Each 2 1 Active lancets (FREESTYLE LANCETS) 28 gaugeIndications: New onset type 2 diabetes mellitus (HCC-CMS) Use to test BG daily before breakfast 100 Each 2 1 Active blood-glucose meter monitoring kitIndications:Ne w onset type 2 diabetes mellitus (HCC-CMS) as needed for blood glucose monitoring 1 Each 1 Active cloNIDine HCL (CATAPRES) 0.1 mg tablet TAKE 1 TABLET BY MOUTH EVERY DAY AT NIGHT 2 Active mirtazapine (REMERON) 45 mg tablet TAKE 1 TABLET BY MOUTH EVERYDAY AT BEDTIME 2 Active venlafaxine (EFFEXOR-XR) 75 mg 24 hr capsule Take 75 mg by mouth once daily 2 Active nicotine, polacrilex, (NICORETTE) 2 mg gumIndications:En counter for smoking cessation counseling Take 1 Each by mouth as needed for smoking cessation Weeks 1-6: 1 piece of gum every 1-2 hours; chew at least 9 pieces per day during the first 6 weeks to increase chances of quitting. Weeks 7-9: 1 piece of gum every 2-4 hours. Weeks 10-12: 1 piece of gum every 4-8 hours. 380 Each 1 2 Active gabapentin (NEURONTIN) 400 mg capsule TAKE 1 CAPSULE BY MOUTH EVERY DAY AT NIGHT Authorized by: JOANNA MORATAYA 2 Active nicotine (NICODERM CQ) 21 mg/24 hr patchIndications: Essential hypertension,Enco unter for smoking cessation counseling Place 1 Patch onto the skin once daily (every 24 hours) 28 Patch 1 2 Active lisinopriL-hydroc hlorothiazide 20-25 mg per tabletIndications :Essential hypertension TAKE 2 TABLETS BY MOUTH EVERY DAY 180 Tablet 3 Active ELIQUIS 2.5 mg tabIndications:Pu lmonary embolism, bilateral (HCC-CMS) TAKE 1 TABLET BY MOUTH TWICE A DAY 60 Tablet 5 3 Active metFORMIN (GLUCOPHAGE) 500 mg tabletIndications :New onset type 2 diabetes mellitus ([facility]-CMS) TAKE 1 TABLET BY MOUTH TWICE A DAY WITH A MEAL 180 Tablet 1 3 Active blood pressure test kit-large Monitor bp daily 1 Kit 2 Active Active Problems Problem Noted Date Diagnosed Date Uncontrolled type 2 diabetes mellitus with hyperglycemia (HCC-CMS) 05/01/2022 Smoker 09/19/2020 Long-term (current) use of anticoagulants, INR g oal 2.0-3.0 10/04/2017 Pulmonary embolism, bilateral ([facility]) 10/05/19 18 Overview (10/04/2017): Diagnosed at [facility] in 2014 Hepatitis B immune 05/03/2017 Overview (05/03/2017): Serology labs 04/14/17 Anti HBC non reactive , Anti HBS reactive - consistent with immunization HTN (hypertension) 04/05/2017 Obesity, morbid, BMI 50 or higher ([facility]) Bipolar 2 disorder ([facility]) Anxiety and depression Immunizations Immunization Administration Dates Next Due Flu, Preservative Free 03/27/2015,09/12/2014 TDAP 01/22/2022 Td (adult), 5 Lf tetanus toxoid, preservative fr ee 06/28/2015 Family History Medical History Relation Name Comments Asthma Brother 1 borther with astma , one heart problems Heart Problems Brother Relation Name Status Comments Brother Alive Father Alive Mother Alive Sister Alive Social History Tobacco Use Types Packs/Day Years Used Date Smoking Tobacco: Every Day Cigarettes 0.5 5 Smokeless Tobacco: Never Tobacco Cessation:Ready to Q uit: Not Asked; Counseling Given: Not Answered Comments:Occasionally - 1/2 pack a day Alcohol Use Standard Drinks/Week Comments Not Currently 1 (1 standard drink = 0.6 oz pur e alcohol) Social Connections Answer Date Recorded Connectedness 0 01/22/2022 Financial Resource Strain Answer Date R ecorded Financial Resource Strain 0 2021 Stress Answer Date Recorded Stress 0 01/22/2022 Physical Activity Answer Date Recorded Physical Activity 0 09/19/2020 Food Insecurity Answer Date Recorded Food 0 01/22/2022 Transportation Needs Answer Date Record ed Transportation 0 01/22/2022 Housing Stability Answer Date Recorded Housing 0 01/22/2022 Safety and Environment Answer Date Escobar rded Safety 0 01/22/2022 Utilities Answer Date Recorded Utilities 0 01/22/2022 Employment Answer Date Recorded Stress 0 09/19/2020 Sex and Gender Information Value Date Recorded Sex Assigned at Male 09/28/2017 6:41 AM PDT Legal Sex Male 7:32 AM PDT Gender Identity Male 09/28/2017 6:41 AM PDT Sexual Orientation Straight 09/28/2017 6: 41 AM PDT Last Filed Vital Signs Vital Sign Reading Time Taken Comments Blood Pressure 144/94 04/05/2022 10:48 AM EDT Pulse 94 04/05/2022 10:38 AM EDT Temperature 36.7 ??C (98 ??F) 04/05/2022 10:38 AM EDT Respiratory Rate 20 04/05/2022 10:38 AM EDT Oxygen Saturation 98% 04/05/2022 10:38 AM EDT Inhaled Oxygen Concentration - - Weight 162.8 kg (359 lb) 04/05/2022 10:38 AM EDT Height 177.8 cm (5' 10 ) 04/05/2022 10:38 AM EDT Body Mass Index 51.51 04/05/2022 10:38 AM EDT Plan of Treatment Health Maintenance Due Date Last Done Comments Dental Examination 1987 Diabetes Foot Exam 1987 Retinopathy Screening 01/28/2000 Imm-Pneumococcal (1 of 2 - PCV) 2006 Depression Monitoring 04/24/2022 01/22/2022 , 09/08/2020, 05/28/2019 (Managed by Outside Provider), Additional history exists Annual Wellness (Adult): Indicated (All Coverage) 01/22/2023 01/22/2022, 09/19/2020, 05/28/2019, Additional history exists Anxiety Screening 01/22/2023 01/22/2022 Tobacco Screening 01/22/2023 01/22/2022, 09/08/2020 Tobacco Cessation Counseling (#1) 01/28/2023 01/22/2022, 09/08/2020 Diabetes HbA1c 02/25/2023 08/25/2022, 0806/2021, 09/22/2020, Additional history exists Urine Albumin Creatinine Rat io Screening 04/05/2023 04/05/2022 Serum Creatinine 08/26/2023 08/25/2022, 04/2022, 09/22/2020, Additional history exists Lipid Screening 11/30/2023 11/29/2022, 03/0 01/2023, 01/28/2022, Additional history exists [id number] ( season) 2024 Imm-Influenza (#1) 2024 06/02/2018, 1 , 09/12/2014 Alcohol and Drug Screen 06/20/2024 01/23/20 22, 09/08/2020, 05/28/2019, Additional history exists Imm-DTaP/Tdap/Td (2 - Td or Tdap) 01/23/2032 01/22/2022, 06/28/2015 HIV Screening Completed 08/25/2022, 04/0 10/2020, 08/30/2018, Additional history exists Hepatitis C Screening Completed 08/25/2022 , 08/30/2018, 08/30/2018, Additional history exists Imm-Hepatitis B Discontinued Goals Goal Patient Goal Type Associated Problems Recent Progress Patient-Stated? Author Blood Pressure < 130/80 Blood Pressure 144/94(2021 10:48 AM EDT) No [place], PharmD Hypertension: Decrease sodium intake General Improving(05/2022 1:26 PM PDT) No Mich [place], [place] Procedures Procedure Name Priority Date/Time Associated Diagnosis Comments MICROALBUMIN/CREATINI NE RATIO, URINE, RANDOM Routine 04/05/2022 11:30 AM EDT New onset type 2 diabetes mellitus (HCC-CMS) COMPREHENSIVE METABOLIC PANEL Routine 01/28/2022 2:21 PM EDT Annual physical exam New onset type 2 diabetes mellitus (HCC-CMS) Essential hypertension LIPID PANEL Routine 01/28/2022 2:21 PM EDT Annual physical exam New onset type 2 diabetes mellitus (HCC-CMS) Essential hypertension HEMOGLOBIN GLYCOSYLATED A1C Routine 01/28/2022 2:21 PM EDT Annual physical exam New onset type 2 diabetes mellitus (HCC-CMS) HIV 1/2 AG & AB W/RFLX (4TH GEN) Routine 09/22/2020 11:16 AM EDT Routine lab draw HEPATITIS A,B,C PANEL Routine 08/30/2018 9:42 AM EDT Routine general medical examination at a health care facility from Last 3 Months or Most Recently Relevant to Health Maintenance Results * MICROALBUMIN/CREATININE RATIO, URINE, RANDOM (04/05/2022 11:30 AM EDT) CREATININE, RANDOM URINE 225 20 - 320 mg/dL [facility] MICROALBUMIN 0.7 mg/dL [facility] Comment: Reference Range Not established MICROALBUMIN/CREA TININE RATIO, RANDOM URINE 3 <30 mcg/mg creat [facility] Comment: The ADA defines abnormalities in albumin excretion as follows: Albuminuria Category ?Result (mcg/mg creatinine) Normal to Mildly increased ?? <30 Moderately increased ? 30-299 Severely increased ? > OR = 300 The ADA recommends that at least two of three specimens collected within a 3-6 month period be abnormal before considering a patient to be within a diagnostic category. Urine Urine specimen / Unknown 04/05/2022 11:30 AM EDT 04/05/2022 11:31 AM EDT Fernanda Siu PA-C LAB URINE AMBULATORY Final R esult [employer] [facility] [address] [address], [facility] [address] [address] * (ABNORMAL) HEMOGLOBIN, GLYCOSYLATED (A1C) (01/28/2022 2:21 PM EDT) HEMOGLOBIN A1C 6.9(H) <5.7 % of total Hgb [facility] Comment: For someone without known diabetes, a hemoglobin A1c value of 6.5% or greater indicates that they may have diabetes and this should be confirmed with a follow-up test. For someone with known diabetes, a value <7% indicates that their diabetes is well controlled and a value greater than or equal to 7% indicates suboptimal control. A1c targets should be individualized based on duration of diabetes, age, comorbid conditions, and other considerations. Currently, no consensus exists regarding use of hemoglobin A1c for diagnosis of diabetes for children. ?? Blood Blood / Unknown 01/28/2022 2 :21 PM EDT 01/28/2022 2:21 PM EDT us Fernanda Siu PA-C LAB - BLOOD DRAW Final Resul t Performing Organization Address City/[facility]/ZIP Co de Phone Number [facility] [address] [address], [employer] [address] [address] * (ABNORMAL) LIPID PANEL (01/28/2022 2:21 PM EDT) [facility] CHOLESTEROL, TOTAL 219(H) <200 mg/dL [facility] HDL CHOLESTEROL 49 > OR = 40 mg/dL [facility] TRIGLYCERIDES 146 <150 mg/dL [facility] LDL-CHOLESTEROL 142(H) 99 mg/dL (calc) [facility] Comment: Reference range: <100 Desirable range <100 mg/dL for primary prevention; ?? <70 mg/dL for patients with CHD or diabetic patients with > or = 2 CHD risk factors. LDL-C is now calculated using the Julio-Cyndi calculation, which is a validated novel method providing better accuracy than the Friedewald equation in the estimation of LDL-C. Julio SS et al. JAMES. 2013;310(19): 6377-5427 (http://education.Solar Flow-Through/faq/RXY724) CHOL/HDLC RATIO 4.5 <5.0 (calc) [facility] NON-HDL CHOLESTEROL 170(H) <130 mg/dL (calc) [facility] Comment: For patients with diabetes plus 1 major ASCVD risk factor, treating to a non-HDL-C goal of <100 mg/dL (LDL-C of <70 mg/dL) is considered a therapeutic option. Blood Blood / Unknown 01/28/2022 2 :21 PM EDT 01/28/2022 2:21 PM EDT us Fernanda Siu PA-C LAB - BLOOD DRAW Final Resul t Performing Organization Address City/[facility]/ZIP Co de Phone Number [facility] [address] [address], [place] [facility] [address] [place] [address] * (ABNORMAL) COMPRE METAB PANEL (01/28/2022 2:21 PM EDT) GLUCOSE 102(H) 65 - 99 mg/dL [facility] Comment: ?Fasting reference interval For someone without known diabetes, a glucose value between 100 and 125 mg/dL is consistent with prediabetes and should be confirmed with a follow-up test. UREA NITROGEN (BUN) 14 7 - 25 mg/dL [facility] CREATININE (blood) 1.20 0.60 - 1.26 mg/dL [facility] EGFR 81 > OR = 60 mL/min/1 .73m2 [facility] Comment: The eGFR is based on the CKD-EPI 2020 equation. To calculate the new eGFR from a previous Creatinine or Cystatin C result, go to https://www.kidney.org/professionals/ kdoqi/gfr%5Fcalculator BUN/CREATININE RATIO NOT APPLICABLE 6 [facility] SODIUM 138 135 - 146 mmol/L [facility] POTASSIUM 4.7 3.5 - 5.3 mmol/L [facility] CHLORIDE 102 98 - 110 mmol/L [facility] CARBON DIOXIDE 30 20 - 32 mmol/L [facility] CALCIUM 10.1 8.6 - 10.3 mg/dL [facility] PROTEIN, TOTAL 7.4 6.1 - 8.1 g/dL [facility] ALBUMIN 4.6 3.6 - 5.1 g/dL [facility] GLOBULIN 2.8 1.9 - 3.7 g/dL (calc) [facility] ALBUMIN/GLOBUL IN RATIO 1.6 1.0 - 2.5 (calc) [facility] BILIRUBIN, TOTAL 0.3 0.2 - 1.2 mg/dL [facility] ALKALINE PHOSPHATASE 86 36 - 130 U/L [facility] AST 31 10 - 40 U/L [facility] ALT 32 9 - 46 U/L [facility] Blood Blood / Unknown 01/28/2022 2 :21 PM EDT 01/28/2022 2:21 PM EDT us Rosimar Siu PA-C LAB - BLOOD DRAW Edited Resu lt - Final [facility] [address] [address], [facility] [address] [address] * (ABNORMAL) HEPATITIS A,B,C PANEL (08/30/2018 9:42 AM EDT) HEPATITIS B SURFACE ANTIGEN NEGATIVE NEGATIVE [facility] Comment: Over the counter supplements containing high doses of biotin may interfere with this assay. ??If interference is suspected, patients shoud be retested after refraining from biotin supplements for 72 hours. HEPATITIS B SURFACE ANTIBODY POSITIVE(A) NEGATIVE [facility] HEPATITIS C VIRUS DIAGNOSTIC NEGATIVE NEGATIVE [facility] 08/30/2018 9:42 AM EDT 08/30/2018 10:26 AM EDT Narrative [facility] - 08/30/2018 11:46 AM EDT [employer], a member of [address] [address] [employer] Machinist - Alison Suarez MD PT ID [id number] ORD# [id number] Maddy Villarreal INTERNAL AUDIT CONSULTANT LAB - BLOOD DRAW Final Result Performing Organization Address City/[facility]/ZIP Co de Phone Number [address] [address], from Last 3 Months or Most Recently Relevant to Health Maintenance Insurance [employer] Care Teams Stoneworking Sander Relationship Specialty Start Date End Date Fernanda Siu PA-C [address] [place] [address] PCP - General [place] [facility]ICINE[place] 04/23/20
[2024-11-14 11:46] LABS: Estimated Average Glucose 146 mg/dL; Hemoglobin A1C 152.7117 umol/L; Hemoglobin A1c % 6.7 % (<6.0); Total Hemoglobin (HGBA1C) 3085.6616 umol/L
[2024-11-14 12:15] LABS: Alanine Aminotransferase 39 U/L (0-40); Albumin Level 4.6 g/dL (3.5-5.0); Alkaline Phosphatase 73 U/L (39-117); Anion Gap 12 (12-20); Aspartate Amino Transferase 35 U/L (5-37); Bilirubin Total 0.2 mg/dL (0.0-1.0); Blood Urea Nitrogen 11 mg/dL (9-16); Calcium 9.3 mg/dL (8.4-10.2); Carbon Dioxide 26 mmol/L (22-29); Chloride 107 mmol/L (96-108); Cholesterol 173 mg/dL (<200); Estimated Glomerular Filt Rate > 60; Glucose Random 128 mg/dL (60-115); HDL Cholesterol 51 mg/dL (>40); LDL Cholesterol Calculated 98 mg/dL (<100); Potassium 3.7 mmol/L (3.3-5.1); Sodium 141 mmol/L (135-145); Total Protein 7.3 g/dL (6.5-8.0); Triglycerides 124 mg/dL (<150)
[2024-11-14 12:31] LABS: Creatinine Urine 165.97 mg/dL; Microalbum/Creatinine Ratio Ur 4.2 ug/mg cr (<30)
== END 2024-11-14 09:33 | disposition home or self-care (01) ==
LOC: HO.HHCL 09:32
PROVIDERS: Visit Provider Registered Nurse
DX: E11.65 Type 2 diabetes mellitus with hyperglycemia (principal)
CPT/HCPCS: 36415; 80053; 80061; 82043; 82570; 83036

== ENCOUNTER 2025-03-27 10:00 | Outpatient (REF) | payer MEDICAID, SELFPAY | END 2025-03-27 10:01 | disposition home or self-care (01) | LOC: HO.HHCL 10:00 | PROVIDERS: PCP Registered Nurse; Visit Provider Registered Nurse | DX: Z13.89 Encounter for screening for other disorder (principal) ==